=== PATIENT | male | born 1945 | race Caucasian/White ===

== ENCOUNTER 2018-05-31 12:46 | Inpatient (IN) ==
--- NOTE | 2018-05-31 14:00 | ED ---
HPI General Chief complaint: Extremity Injury, Upper Stated complaint: Right arm swelling fall on monday Time Seen by Provider: 05/31/18 13:58 Source: patient History of Present Illness HPI narrative: Patient is a 73-year-old male who presents the emergency room for evaluation of upper extremity edema and swelling and redness. Patient reports that he has history of polymyalgia rheumatica, reports that he trial prednisone 5 weeks ago and did not tolerate it and he developed allergic reaction. Patient reports that he did improve after his allergic reaction, reports that on Monday, he slipped and fell and his right elbow. Patient reports that over the past few days, he noticed increased redness and swelling to his right upper extremity. Patient reports concerns as he has been elevating his arm and has not had relief of symptoms. Patient denies any fever chills, denies any nausea vomiting. Patient's tetanus is up-to-date. Related Data Home Medications Medication Instructions Recorded Confirmed clonidine HCl 0.1 mg PO TID 05/31/18 05/31/18 enalapril maleate 5 mg PO DAILY 05/31/18 05/31/18 hydrochlorothiazide 50 mg PO DAILY 05/31/18 05/31/18 labetalol 200 mg PO BID 05/31/18 05/31/18 tramadol 50 mg PO BID 05/31/18 05/31/18 Allergies Allergy/AdvReac Type Severity Reaction Status Date / Time MUSHROOM Allergy Unknown Uncoded 08/05/03 04:35 No Known Allergies Allergy Uncoded 09/05/16 10:41 Review of Systems ROS Unobtainable All other systems reviewed negative except as stated in HPI [facility] Medical History Medical History H/O aortic aneurysm (Acute) H/O polymyalgia rheumatica (Acute) H/O scoliosis (Acute) H/O spinal stenosis (Acute) Surgical History Surgical History History of back surgery (Acute) Social History Social History Smoking Status: Unknown if ever smoked How Often Do You Have a Drink Containing Alcohol: Never Recent Travel in [facility] within the Last 8 Weeks: No Recent Out of Country Travel within the Last 8 Weeks: No Exam Narrative Exam Narrative: GENERAL: well appearing, NAD SKIN: Focused skin assessment warm/dry. HEAD: Atraumatic. Normocephalic. EYES: Pupils equal and round. No scleral icterus. No injection or drainage. ENT: No nasal bleeding or discharge. Mucous membranes pink and moist. NECK: Trachea midline. No JVD. CARDIOVASCULAR: Regular rate and rhythm. No murmur appreciated. RESPIRATORY: No accessory muscle use. Clear to auscultation. Breath sounds equal bilaterally. GASTROINTESTINAL: Abdomen soft, non-tender, nondistended. Hepatic and splenic margins not palpable. MUSCULOSKELETAL: No obvious deformities. No clubbing. No cyanosis. Patient with circumfrential edema and redness from hand to shoulder, it does look like he has a scabbed wound to his right elbow which could have been the inciting source of infection, pulses are intact, neurovascularly intact. LUE:normal exam NEUROLOGICAL: Awake and alert. No obvious cranial nerve deficits. Motor grossly within normal limits. Normal speech. PSYCHIATRIC: Appropriate mood and affect; insight and judgment normal. Course Initial Documented Vital Signs Temperature 98.6 F 05/31/18 13:18 Pulse Rate 92 H 05/31/18 13:18 Respiratory Rate 16 05/31/18 13:18 Blood Pressure 97/53 L 05/31/18 13:18 Pulse Oximetry 98 05/31/18 13:18 Last Documented Vital Signs Temperature 98.6 F 05/31/18 13:18 Pulse Rate 92 H 05/31/18 13:18 Respiratory Rate 16 05/31/18 13:18 Blood Pressure 97/53 L 05/31/18 13:18 Pulse Oximetry 98 05/31/18 13:18 Medical Decision Making [facility] Narrative Medical decision making narrative: During the course of the patients emergency department visit, the patients history, examination, and differential diagnosis were reviewed with the patient. The patient was placed on a secured entrance monitor with oximetry and frequent blood pressure monitoring. The patient had anIV access obtained and blood work sent for analysis. The patient was initially provided IVF as well as IV vanco The patients laboratory studies were reviewed and remarkable for wbc 26.1, bandemia with band neutrophils of 13% Patient has been pancultured, will require admission at this time. Case reviewed with Dr. Hong who accepts pt to his service, RUE US was ordered to rule out DVT - Dr. Hong will follow up with ultrasound report CR 2.7 - reports that he does have chronic renal disease - unsure of what his baseline CR is, cr from was 1.52 Differential Diagnosis Differential Diagnosis: cellulitis, dvt Medical Records Medical records reviewed: Yes I reviewed the patient's medical records. Lab Data Lab results reviewed: Yes I reviewed the patient's lab results. Result diagrams: 05/31/18 14:25 05/31/18 14:25 Lab Results 05/31/18 05/31/18 Range/Units 14:25 14:25 CBC w Diff Slide review pending WBC 26.1 H (4.0-11.0) th/mm3 RBC 3.76 L (4.50-5.90) mil/mm3 Hgb 11.8 L (13.0-17.0) gm/dL Hct 35.7 L (39.0-51.0) % MCV 95.0 (80.0-100.0) fL MCH 31.4 (27.0-34.0) pg MCHC 33.1 (32.0-36.0) % RDW 13.6 (11.6-17.2) % Plt Count 178 (150-450) th/mm3 MPV 10.2 (7.0-11.0) fL Neut % (Auto) 89.0 H (16.0-70.0) % Lymph % (Auto) 2.4 L (9.0-44.0) % [place] % (Auto) 6.8 (0.0-8.0) % Eos % (Auto) 1.6 (0.0-4.0) % Baso % (Auto) 0.2 (0.0-2.0) % Neut # (Auto) 23.2 H (1.8-7.7) th/mm3 Lymph # (Auto) 0.6 L (1.0-4.8) th/mm3 [place] # (Auto) 1.8 H (0.0-0.9) th/mm3 Eos # (Auto) 0.4 (0.0-0.4) th/mm3 Baso # (Auto) 0.1 (0.0-0.2) th/mm3 WBC Differential Manual diff final Seg Neuts % (Manual) 74 H (16-70) % Band Neuts % (Manual) 13 H (0-6) % Lymphocytes % (Manual) 4 L (9-44) % Monocytes % (Manual) 7 (0-8) % Eosinophils % (Manual) 2 (0-4) % Abs Neuts (Manual) 22.7 H (1.8-7.7) th/mm3 Platelet Estimate Normal (Normal) Platelet Morphology Normal (Normal) Sodium 138 (136-145) meq/L Potassium 3.8 (3.5-5.1) meq/L Chloride 104 (98-107) meq/L Carbon Dioxide 24.9 (21.0-32.0) meq/L Anion Gap 9 (5-15) meq/L BUN 42 H (7-18) mg/dL Creatinine 2.40 H (0.60-1.30) mg/dL Estimated GFR 27 L (>89) mL/min Random Glucose 103 (74-106) mg/dL Calcium 8.6 (8.5-10.1) mg/dL Total Bilirubin 0.6 (0.2-1.0) mg/dL AST 21 (15-37) U/L ALT 19 (12-78) U/L Alkaline Phosphatase 84 (45-117) U/L Total Protein 5.9 L (6.4-8.2) g/dL Albumin 2.5 L (3.4-5.0) g/dL Discharge Plan Discharge Disposition Patient Disposition: 30 Still Patient Discharge Condition Condition: Serious Discharge Details Discharge Problem: Cellulitis Physicians Team ED Provider: Yolande Callahan Primary Care Provider: Nirav Wakefield Rxs /Orders / Referrals /Forms Prescriptions: No Action clonidine HCl 0.1 mg Tablet 0.1 mg PO TID RF: 0 labetalol 200 mg Tablet 200 mg PO BID RF: 0 enalapril maleate 5 mg Tablet 5 mg PO DAILY RF: 0 hydrochlorothiazide 50 mg Tablet 50 mg PO DAILY RF: 0 tramadol 50 mg Tablet 50 mg PO BID RF: 0 Status ED Status: Admitted Patient
[2018-05-31 14:42] LABS: Baso # (Auto) 0.1 th/mm3 (0.0-0.2); Baso % (Auto) 0.2 % (0.0-2.0); Eos # (Auto) 0.4 th/mm3 (0.0-0.4); Eos % (Auto) 1.6 % (0.0-4.0); Hematocrit 35.7 % (39.0-51.0); Hemoglobin 11.8 gm/dL (13.0-17.0); Lymph # (Auto) 0.6 th/mm3 (1.0-4.8); Lymph % (Auto) 2.4 % (9.0-44.0); Mean Corpuscular HGB Conc 33.1 % (32.0-36.0); Mean Corpuscular Hemoglobin 31.4 pg (27.0-34.0); Mean Platelet Volume 10.2 fL (7.0-11.0); Mono # (Auto) 1.8 th/mm3 (0.0-0.9); Mono % (Auto) 6.8 % (0.0-8.0); Neut # (Auto) 23.2 th/mm3 (1.8-7.7); Platelet Count 178 th/mm3 (150-450); Red Blood Count 3.76 mil/mm3 (4.50-5.90); Red Cell Distribution Width 13.6 % (11.6-17.2); White Blood Count 26.1 th/mm3 (4.0-11.0)
[2018-05-31] MEDS ORDERED: Vancomycin Inj 1 GM/200 ML PIGGYBACK IV.SIG SCH (15:00)
[2018-05-31 15:01] LABS: Chloride 104 meq/L (98-107); Potassium 3.8 meq/L (3.5-5.1); Sodium 138 meq/L (136-145)
[2018-05-31 15:04] LABS: Calcium 8.6 mg/dL (8.5-10.1)
[2018-05-31 15:05] LABS: Albumin 2.5 g/dL (3.4-5.0); Anion Gap 9 meq/L (5-15); Blood Urea Nitrogen 42 mg/dL (7-18); Carbon Dioxide 24.9 meq/L (21.0-32.0); Glucose,Random 103 mg/dL (74-106)
[2018-05-31 15:08] LABS: Alanine Aminotransferase 19 U/L (12-78); Aspartate Aminotransferase 21 U/L (15-37); Glomerular Filtration Rate 27 mL/min (>89)
[2018-05-31 15:10] LABS: Total Protein 5.9 g/dL (6.4-8.2)
[2018-05-31 15:11] LABS: Alkaline Phosphatase 84 U/L (45-117)
[2018-05-31 15:19] LABS: Eosinophils 2 % (0-4); Lymphocytes 4 % (9-44); Monocytes 7 % (0-8); Platelet Estimate Normal (Normal); Platelet Morphology Normal (Normal)
[2018-05-31 15:25] LABS: Activated Partial Thrombo Time 37.1 sec (24.3-30.1); Prothrombin Time 10.1 sec (9.8-11.6)
[2018-05-31] MEDS ORDERED: Sod Chloride 0.9% Inj 1,000 ML IV.SIG ONE ×2 (15:34)
--- NOTE | 2018-05-31 15:41 | US ---
EXAM DATE: 05/31/2018 3:36 PM EDT AGE/SEX: 73 years / Male INDICATIONS: Right arm swelling, redness and pain. CLINICAL DATA: This is the patient's initial encounter. Patient reports that signs and symptoms have been present for 3 days and indicates a pain score of 5/10. MEDICAL/SURGICAL HISTORY: Aneurysm, abdominal. Spinal stenosis. Polymyalgia rheumatica. Scolios is. . Back surgery. COMPARISON: No prior exams available for comparison. FINDINGS: The vessels are compressible and augmentation response is documented. No filling defects a re seen. The flow is phasic with respiration. Other: There is edema in the subcutaneous soft tissues. CONCLUSION: 1. No evidence of DVT. Electronically signed by: Johnnie Weber MD 05/31/2018 3:40 PM EDT
[2018-05-31] MEDS ORDERED: Piperacil/Tazo 3.375 GM Premix 50 ML IV.SIG ONE (15:43)
[2018-05-31] MEDS ORDERED: Acetaminophen 500 MG Tablet PO PRN (16:23)
--- NOTE | 2018-05-31 16:36 | P.HPIM ---
History of Present Illness Primary Care Physician: Nirav Wakefield MD Chief Complaint: swelling of the right arm History of Present Illness: patient is a 73 y/o male who presented to ER with swelling of the right arm. he says that he hit his hand to something a few days ago when he was walking.after which he started to notice some swelling and redness of the right arm. he denies any fever or chills but he says that the right arm is painful. - Diagnosis (1) Cellulitis (2) PMR (polymyalgia rheumatica) (3) Descending aortic aneurysm (4) Acute kidney injury superimposed on chronic kidney disease - Inpatient Certification If this patient has been admitted as an Inpatient: I certify that the inpatient services were ordered in accordance with Medicare regulations governing the order. This includes certification that hospital inpatient services are reasonable and necessary and in the case of services not specified as inpatient-only under 42 CFR 419.22(n), that they are appropriately provided as inpatient services in accordance to with the 2-midnight benchmark under 43 CFR 412.3(e) Review of Systems All other systems reviewed negative except as stated in HPI PMFSH - History History Provided By: Patient - Medical History Medical History: Medical History (Last Reviewed 05/31/18 @ 15:27 by Yolande Callahan) H/O aortic aneurysm H/O polymyalgia rheumatica H/O scoliosis H/O spinal stenosis - Surgical History Surgical History: Surgical History (Last Reviewed 05/31/18 @ 15:27 by Yolande Callahan) History of back surgery - Tobacco History Smoking Status: Unknown if ever smoked - Alcohol History How Often Do You Have a Drink Containing Alcohol: Never - Travel History Recent Travel in the [place] Within the Last 8 Weeks: No Recent Travel Out of the Country Within the Last 8 Weeks: No - Immunization History Tetanus Immunization: <5 Years Hx Influenza Vaccine This Season: No Medications and Allergies Active Medications: Active Medications Acetaminophen (Tylenol) 500 mg PO Q6H PRN PRN Reason: FEVER Vancomycin/Sodium Chloride (Vancomycin Inj) 1 gm in 200 mls @ 200 mls/hr IV.SIG [facility] Last Admin: 05/31/18 15:41 Dose: 200 mls/hr Pharmacy Profile Note (Vancomycin Consult Pharmacy) 0 mls @ 0 mls/hr OTHER [facility] Piperacillin/Tazobactam/Dextrose (Zosyn 2.25 Gm Premix) 50 mls @ 100 mls/hr IV.SIG Q6H [place] Sodium Chloride (Ns Inj) 1,000 mls @ 70 mls/hr IV.CONT .[id number] [place] Labetalol HCl (Trandate) 200 mg PO BID [place] Tramadol HCl (Ultram) 50 mg PO Q6H PRN PRN Reason: pain > 4 Allergies Allergy/AdvReac Type Severity Reaction Status Date / Time MUSHROOM Allergy Unknown Uncoded 08/05/03 04:35 No Known Allergies Allergy Uncoded 09/05/16 10:41 Home Medications Medication Instructions Recorded Confirmed Type clonidine HCl 0.1 mg PO TID 05/31/18 05/31/18 History enalapril maleate 5 mg PO DAILY 05/31/18 05/31/18 History hydrochlorothiazide 50 mg PO DAILY 05/31/18 05/31/18 History labetalol 200 mg PO BID 05/31/18 05/31/18 History tramadol 50 mg PO BID 05/31/18 05/31/18 History Exam Vital signs: Vital Signs 05/31/18 13:18 05/31/18 15:52 05/31/18 16:05 Temperature 98.6 F Pulse Rate 92 H 87 Respiratory Rate 16 16 Blood Pressure 97/53 L 102/62 Pulse Oximetry 98 97 99 Intake & Output 05/30/18 05/31/18 05/31/18 18:59 06:59 18:59 Weight 77 kg - Constitutional no acute distress - Routine Neck Exam Present: supple, full ROM - Routine Respiratory Exam Present: CTA bilaterally - Routine Cardiovascular Exam Present: RRR - Routine Abdominal Exam Present: soft - Routine Extremities Exam Present: edema (right arm is swollen with erythema from the right hand upto the right upper arm.) - Routine Skin Exam Present: erythema (right arm.) - Routine Neurological Exam Present: alert, oriented X3 Results - Labs CBC & Chem 7: 05/31/18 14:25 05/31/18 14:25 Labs: Short CBC 05/31/18 Range/Units 14:25 WBC 26.1 H (4.0-11.0) th/mm3 Hgb 11.8 L (13.0-17.0) gm/dL Hct 35.7 L (39.0-51.0) % Plt Count 178 (150-450) th/mm3 BMP 05/31/18 14:25 Sodium 138 Potassium 3.8 Chloride 104 Carbon Dioxide 24.9 BUN 42 H Creatinine 2.40 H Calcium 8.6 Liver Function 05/31/18 Range/Units 14:25 Total Bilirubin 0.6 (0.2-1.0) mg/dL AST 21 (15-37) U/L ALT 19 (12-78) U/L Alkaline Phosphatase 84 (45-117) U/L Albumin 2.5 L (3.4-5.0) g/dL - Imaging Impressions Venous Doppler Study 05/31/18 14:15 CONCLUSION: 1. No evidence of DVT. Caprini VTE Risk Assessment Caprini VTE Risk Assessment: Moderate/High Risk (score >= 2) Caprini Risk Assessment Model: Point Value = 1 Point Value = 2 Point Value = 3 Point Value = 5 Age 41-60 Minor surgery BMI > 25 kg/m2 Swollen legs Varicose veins or History of unexplained or recurrent spontaneous Oral contraceptives or hormone replacement Sepsis (< 1 month) Serious lung disease, including pneumonia (< 1 month) Abnormal pulmonary function Acute myocardial infarction Congestive heart failure (< 1 month) History of inflammatory bowel disease Medical patient at bed rest Age 61-74 Arthroscopic surgery Major open surgery (> 45 min) Laparoscopic surgery (> 45 min) Malignancy Confined to bed (> 72 hours) Immobilizing plaster cast Central venous access Age >= 75 History of VTE Family history of VTE Factor V Leiden Prothrombin [id number] Lupus anticoagulant Anticardiolipin antibodies Elevated serum homocysteine Heparin-induced thrombocytopenia Other congenital or acquired thrombophilia Stroke (< 1 month) Elective arthroplasty Hip, pelvis, or leg fracture Acute spinal cord injury (< 1 month) Prophylaxis Regimen: Total Risk Factor Score Risk Level Prophylaxis Regimen 0-1 Low Early ambulation 2 Moderate Order ONE of the following: *Sequential Compression Device (SCD) *Heparin 5000 units SQ BID 3-4 Higher Order ONE of the following medications: *Heparin 5000 units SQ TID *Enoxaparin/Lovenox 40 mg SQ daily (WT < 150 kg, CrCl > 30 mL/min) *Enoxaparin/Lovenox 30 mg SQ daily (WT < 150 kg, CrCl > 10-29 mL/min) *Enoxaparin/Lovenox 30 mg SQ BID (WT < 150 kg, CrCl > 30 mL/min) AND/OR *Sequential Compression Device (SCD) 5 or more Highest Order ONE of the following medications: *Heparin 5000 units SQ TID (Preferred with Epidurals) *Enoxaparin/Lovenox 40 mg SQ daily (WT < 150 kg, CrCl > 30 mL/min) *Enoxaparin/Lovenox 30 mg SQ daily (WT < 150 kg, CrCl > 10-29 mL/min) *Enoxaparin/Lovenox 30 mg SQ BID (WT < 150 kg, CrCl > 30 mL/min) AND *Sequential Compression Device (SCD) Assessment and Plan - Assessment (1) Cellulitis Code(s): L03.90 - Cellulitis, unspecified Status: Acute Plan: continue with broad-spectrum IV antibiotics and pain control- follow the cultures- will consider ID and/or hand surgery evaluation if no improvement over the next 24 hrs. (2) PMR (polymyalgia rheumatica) Code(s): M35.3 - Polymyalgia rheumatica Status: Acute Plan: patient has been on prednisone recently- will need to verify the home meds. (3) Descending aortic aneurysm Code(s): I71.9 - Aortic aneurysm of unspecified site, without rupture Status: Acute Plan: will monitor the BP over night and will resume the home meds tomorrow if BP remains stable. (4) Acute kidney injury superimposed on chronic kidney disease Code(s): N17.9 - Acute kidney failure, unspecified; N18.9 - Chronic kidney disease, unspecified Status: Acute Plan: start on IV fluid and monitor the renal function- hold YO for now- (1) Cellulitis Qualifiers: Site of cellulitis: extremity Site of cellulitis of extremity: upper extremity Laterality: right Qualified Code(s): L03.113 - Cellulitis of right upper limb
[2018-05-31] MEDS ORDERED: Vancomycin Consult Pharmacy 1 EACH OTHER SCH (17:00)
[2018-05-31] MEDS: Sod Chloride 0.9% Inj 1,000 ML IV.CONT SCH (17:49)
[2018-05-31] MEDS: Piperacil/Tazo 2.25 GM Premix 50 ML IV.SIG SCH (21:12)
[2018-05-31] MEDS: Labetalol 200 MG Tablet PO SCH (21:12)
[2018-06-01] MEDS: Piperacil/Tazo 2.25 GM Premix 50 ML IV.SIG SCH ×3 (04:19→15:54)
[2018-06-01 06:17] LABS: Potassium 3.9 meq/L (3.5-5.1)
[2018-06-01 06:19] LABS: Hematocrit 35.9 % (39.0-51.0); Mean Corpuscular HGB Conc 33.5 % (32.0-36.0); Mean Corpuscular Hemoglobin 31.8 pg (27.0-34.0); Mean Platelet Volume 10.6 fL (7.0-11.0); Platelet Count 193 th/mm3 (150-450); Red Blood Count 3.78 mil/mm3 (4.50-5.90); Red Cell Distribution Width 13.6 % (11.6-17.2); White Blood Count 24.6 th/mm3 (4.0-11.0)
[2018-06-01 06:20] LABS: Calcium 8.8 mg/dL (8.5-10.1); Carbon Dioxide 21.9 meq/L (21.0-32.0)
--- NOTE | 2018-06-01 08:05 | P.PN ---
Subjective Interval history: f/u; cellulitis right arm still with significant swelling and erythema over the right upper extremity with no significant improvement since yesterday. pain to the site is moderate in intensity. no fever. Physical Exam Vital signs: Vital Signs 05/31/18 13:18 05/31/18 15:52 05/31/18 16:05 Temperature 98.6 F Pulse Rate 92 H 87 Respiratory Rate 16 16 Blood Pressure 97/53 L 102/62 Pulse Oximetry 98 97 99 05/31/18 17:40 05/31/18 20:00 06/01/18 00:00 Temperature 96.7 F L 99.3 F 97.9 F Pulse Rate 89 89 85 Respiratory Rate 20 20 20 Blood Pressure 119/57 L 102/60 96/56 L Pulse Oximetry 98 98 95 Intake & Output 05/31/18 06/01/18 06/01/18 18:59 06:59 18:59 Intake Total 1200 / 1200 870 / 870 Balance 1200 / 1200 870 / 870 Weight 75.9 kg 75.7 kg Intake: IV 1200 / 1200 150 / 150 Zosyn 2.25 GM Premix 50 ML @ 100 / 100 100 mls/hr IV.SIG Q6H [place] Rx#: [id number] Zosyn 3.375 GM Premix 50 ML @ 50 / 50 100 mls/hr IV.SIG ONCE ONE Rx#: [id number] NS Inj 1,000 ML @ Wide Open IV. 1000 / 1000 SIG BOLUS ONE Rx#:[id number] Vancomycin Inj 1 gm In 200 ml @ 200 / 200 200 mls/hr IV.SIG [employer] [facility] Rx#:[id number] Oral 720 / 720 Other: # Voids 2 Weight On Admission 75.9 kg - Constitutional no acute distress - Routine Respiratory Exam Present: CTA bilaterally - Routine Cardiovascular Exam Present: RRR - Routine Abdominal Exam Present: soft - Routine Extremities Exam Present: edema (right upper extremity) - Routine Skin Exam Present: erythema (right upper extremity) - Routine Neurological Exam Present: alert, oriented X3 Results - Labs CBC & Chem 7: 06/01/18 04:45 06/01/18 04:45 Laboratory Results - last 24 hr 05/31/18 05/31/18 05/31/18 14:25 14:25 14:25 CBC w Diff Slide review pending WBC 26.1 H RBC 3.76 L Hgb 11.8 L Hct 35.7 L MCV 95.0 MCH 31.4 MCHC 33.1 RDW 13.6 Plt Count 178 MPV 10.2 Neut % (Auto) 89.0 H Lymph % (Auto) 2.4 L [place] % (Auto) 6.8 Eos % (Auto) 1.6 Baso % (Auto) 0.2 Neut # (Auto) 23.2 H Lymph # (Auto) 0.6 L [place] # (Auto) 1.8 H Eos # (Auto) 0.4 Baso # (Auto) 0.1 WBC Differential Manual diff final Seg Neuts % (Manual) 74 H Band Neuts % (Manual) 13 H Lymphocytes % (Manual) 4 L Monocytes % (Manual) 7 Eosinophils % (Manual) 2 Abs Neuts (Manual) 22.7 H Platelet Estimate Normal Platelet Morphology Normal PT 10.1 INR 1.0 APTT 37.1 H Sodium 138 Potassium 3.8 Chloride 104 Carbon Dioxide 24.9 Anion Gap 9 BUN 42 H Creatinine 2.40 H Estimated GFR 27 L Random Glucose 103 Lactic Acid Calcium 8.6 Total Bilirubin 0.6 AST 21 ALT 19 Alkaline Phosphatase 84 Total Protein 5.9 L Albumin 2.5 L 05/31/18 06/01/18 06/01/18 15:55 04:45 04:45 CBC w Diff WBC 24.6 H RBC 3.78 L Hgb 12.0 L Hct 35.9 L MCV 95.0 MCH 31.8 MCHC 33.5 RDW 13.6 Plt Count 193 MPV 10.6 Neut % (Auto) Lymph % (Auto) [place] % (Auto) Eos % (Auto) Baso % (Auto) Neut # (Auto) Lymph # (Auto) [place] # (Auto) Eos # (Auto) Baso # (Auto) WBC Differential Seg Neuts % (Manual) Band Neuts % (Manual) Lymphocytes % (Manual) Monocytes % (Manual) Eosinophils % (Manual) Abs Neuts (Manual) Platelet Estimate Platelet Morphology PT INR APTT Sodium 140 Potassium 3.9 Chloride 106 Carbon Dioxide 21.9 Anion Gap 12 BUN 34 H Creatinine 2.10 H Estimated GFR 31 L Random Glucose 96 Lactic Acid 1.0 Calcium 8.8 Total Bilirubin AST ALT Alkaline Phosphatase Total Protein Albumin - Imaging Impressions Venous Doppler Study 05/31/18 14:15 CONCLUSION: 1. No evidence of DVT. Assessment and Plan - Assessment (1) Cellulitis Code(s): L03.90 - Cellulitis, unspecified Status: Acute Plan: continue with broad-spectrum IV antibiotics and pain control- follow the cultures- will consult ID and hand surgery. (2) PMR (polymyalgia rheumatica) Code(s): M35.3 - Polymyalgia rheumatica Status: Acute Plan: patient has been on prednisone recently- (3) Descending aortic aneurysm Code(s): I71.9 - Aortic aneurysm of unspecified site, without rupture Status: Acute Plan: BP management as noted- f/u as outpatient. (4) Acute kidney injury superimposed on chronic kidney disease Code(s): N17.9 - Acute kidney failure, unspecified; N18.9 - Chronic kidney disease, unspecified Status: Acute Plan: started on IV fluid and monitor the renal function- hold YO for now- (5) Hypertension Code(s): I10 - Essential (primary) hypertension Status: Chronic Plan: resumed Labetalol- hold Enalapril for now due to acute kidney injury- continue to monitor and adjust the regimen as needed. - Plan Discharge Planning: pending clinical improvement. (1) Cellulitis Qualifiers: Site of cellulitis: extremity Site of cellulitis of extremity: upper extremity Laterality: right Qualified Code(s): L03.113 - Cellulitis of right upper limb
[2018-06-01] MEDS: Labetalol 200 MG Tablet PO SCH ×2 (08:16→20:57)
[2018-06-01] MEDS: Sod Chloride 0.9% Inj 1,000 ML IV.CONT SCH (08:17)
[2018-06-01] MEDS ORDERED: Labetalol 200 MG Tablet PO SCH (09:00)
[2018-06-01 10:49] LABS: Vancomycin,Random 7.4 Comment
--- NOTE | 2018-06-01 14:19 | MB ---
cc: Simona Soriano MD DATE: 06/01/2018 REQUESTING PHYSICIAN: Dr. Yolande Callahan. REASON FOR CONSULTATION: Right upper extremity swelling. HISTORY OF PRESENT ILLNESS: The patient is a 73-year-old male who reports that approximately 4 days ago, he was in his kitchen and slipped and scraped his right elbow. The patient, who has a history of polymyalgia rheumatica, had taken prednisone 5 weeks before, which he did not tolerate and had been off that for quite a while. The patient reported that after the scrape on Monday, each day the arm got more and more swollen. He sought medical attention on and was admitted at that time for intravenous antibiotics. His laboratory data at that time indicated a white count of 26.1 with 89% neutrophils; absolute number was 23.2 thousand. His blood sugar at the time of admission was 103. The patient had a workup for DVT, which was negative. Over the last 12 hours, the arm has improved. The patient reports that there was significant swelling on the dorsal aspect of his right hand, which has completely abated. He does continue to have swelling and edema more proximally. There is redness which goes from the area of the wrist, just distal to the shoulder. PAST MEDICAL HISTORY: The patient reports that he has a history of an aortic aneurysm, polymyalgia rheumatica, scoliosis, and spinal stenosis. SOCIAL HISTORY: Noncontributory. Alcohol is negative. ALLERGIES: INCLUDE MUSHROOMS. PHYSICAL EXAMINATION: GENERAL: The patient is sitting comfortably in bed. HEENT: His extraocular muscles are intact. His pupils are equal, round and reactive to light. His mouth is clear. NECK: Supple, without masses. LUNGS: Clear. HEART: Regular rate and rhythm. UPPER EXTREMITIES: Reveals significant swelling to the right upper extremity. There is a scab over the elbow, which is healed. There is no fluctuance present. No evidence of abscess formation. The redness does go from just distal to his right shoulder, all the way to the area of the wrist. He is able to flex and extend his elbow and fingers. IMPRESSION: The patient appears to have a cellulitis secondary to an injury. PLAN: The patient appears to be responding adequately to the antibiotics. I will continue the intravenous antibiotics. I do not anticipate that he will need to have any type of surgical intervention. I will follow him with you over the weekend. MD WALKER Martines/FLASH , 01:59 PM , 02:17 PM
[2018-06-01] MEDS ORDERED: Vancomycin Inj 1,500 MG in Sodium Chlor 0.9% Inj 500 ML IV.SIG SCH (15:00)
--- NOTE | 2018-06-01 15:50 | P.CON ---
History of Present Illness Service: INFECTIOUS DISEASE Consult date: 06/01/18 Requesting Physician: Kiki Ramirez Reason for Consult: RIGHT ARM CELLULITIS Primary Care Provider: Nirav Wakefield MD Family Provider: Nirav Wakefield MD Chief Complaint: swelling of the right arm History of Present Illness: 73 YR OLD MALE WITH A RECENT DIAGNOSIS OF POLY RHEUMATICA NEARLY 2 MONTHS AGO IS ADMITTED WITH RIGHT ARM CELLULITIS AFTER HE FEEL IN HIS BATHROOM ON MONDAY AND HIT HIS RIGHT ELBOW. HE NOTED AN ABRASION OVER THE ELBOW. NO FEVER OR CHILLS BUT STATES THE ELBOW IS VERY HOT. HE HAS LIMITED ROM. HE WAS STARTED ON ZOSYN/VANCOMYCIN AND STATES IT IS FEELING BETTER. [facility] - History History Provided By: Patient - Medical History Medical History: Medical History (Last Reviewed 05/31/18 @ 15:27 by Yolande Callahan) H/O aortic aneurysm H/O polymyalgia rheumatica H/O scoliosis H/O spinal stenosis - Surgical History Surgical History: Surgical History (Last Reviewed 05/31/18 @ 15:27 by Yolande Callahan) History of back surgery - Tobacco History Second Hand Smoke Exposure: No Tobacco Use In Past 30 Days: No Smoking Status: Never smoker Tobacco Type: Cigarettes - Alcohol History How Often Do You Have a Drink Containing Alcohol: Never - Substance Use History Substance History: No History of Abuse - Travel History Recent Travel in the [place] Within the Last 8 Weeks: No Recent Travel Out of the Country Within the Last 8 Weeks: No - Immunization History Tetanus Immunization: <5 Years Hx Influenza Vaccine This Season: No Medications and Allergies Active Medications: Active Medications Acetaminophen (Tylenol) 500 mg PO Q6H PRN PRN Reason: FEVER Vancomycin/Sodium Chloride (Vancomycin Inj) 1 gm in 200 mls @ 200 mls/hr IV.SIG CLOCK AND WATCH HANDS MOUNTER [facility] Last Infusion: 05/31/18 17:53 Dose: Infused Pharmacy Profile Note (Vancomycin Consult Pharmacy) 0 mls @ 0 mls/hr OTHER UNSCH [facility] Piperacillin/Tazobactam/Dextrose (Zosyn 2.25 Gm Premix) 50 mls @ 100 mls/hr IV.SIG Q6H [facility] Last Infusion: 06/01/18 12:53 Dose: Infused Sodium Chloride (Ns Inj) 1,000 mls @ 70 mls/hr IV.CONT .[id number] [facility] Last Admin: 06/01/18 08:17 Dose: 70 mls/hr Vancomycin HCl 1,250 mg/ (Sodium Chloride) 262.5 mls @ 250 mls/hr IV.SIG Q12H [facility] Labetalol HCl (Trandate) 200 mg PO BID [facility] Last Admin: 06/01/18 08:16 Dose: 200 mg Miscellaneous Information ([facility] [place]dered [place] Info) 1 each OTHER UNSCH X1 ONE Stop: 06/03/18 05:46 Tramadol HCl (Ultram) 50 mg PO Q6H PRN PRN Reason: pain > 4 Last Admin: 06/01/18 08:15 Dose: 50 mg Allergies Allergy/AdvReac Type Severity Reaction Status Date / Time MUSHROOM Allergy Unknown Uncoded 08/05/03 04:35 No Known Allergies Allergy Uncoded 09/05/16 10:41 Home Medications Medication Instructions Recorded Confirmed Type clonidine HCl 0.1 mg PO Q8HR 05/31/18 05/31/18 History enalapril maleate 5 mg PO DAILY 05/31/18 05/31/18 History hydrochlorothiazide 50 mg PO DAILY 05/31/18 05/31/18 History labetalol 200 mg PO BID 05/31/18 05/31/18 History tramadol 50 mg PO BID PRN 05/31/18 05/31/18 History Physical Exam Vital signs: Vital Signs 05/31/18 15:52 05/31/18 16:05 05/31/18 17:40 Temperature 96.7 F L Pulse Rate 87 89 Respiratory Rate 16 20 Blood Pressure 102/62 119/57 L Pulse Oximetry 97 99 98 05/31/18 20:00 06/01/18 00:00 06/01/18 08:00 Temperature 99.3 F 97.9 F 96.6 F L Pulse Rate 89 85 75 Respiratory Rate 20 20 Blood Pressure 102/60 96/56 L 111/55 L Pulse Oximetry 98 95 99 06/01/18 08:31 06/01/18 09:26 06/01/18 12:00 Temperature 97 F L Pulse Rate 85 Respiratory Rate 18 18 Blood Pressure 115/57 L Pulse Oximetry 99 96 Intake & Output 05/31/18 06/01/18 06/01/18 18:59 06:59 18:59 Intake Total 1200 / 1200 870 / 870 1050 / 1050 Balance 1200 / 1200 870 / 870 1050 / 1050 Weight 75.9 kg 75.7 kg Intake: IV 1200 / 1200 150 / 150 1050 / 1050 NS Inj 1,000 ML @ 70 mls/hr IV. 1000 / 1000 CONT .[id number] [facility] Rx#: [id number] Zosyn 2.25 GM Premix 50 ML @ 100 / 100 50 / 50 100 mls/hr IV.SIG Q6H [facility] Rx#: [id number] Zosyn 3.375 GM Premix 50 ML @ 50 / 50 100 mls/hr IV.SIG [facility] Rx#: [id number] NS Inj 1,000 ML @ Wide Open IV. 1000 / 1000 [facility] Rx#:[id number] Vancomycin Inj 1 gm In 200 ml @ 200 / 200 200 mls/hr IV.SIG CLOCK AND WATCH HANDS MOUNTER [facility] Rx#:[id number] Oral 720 / 720 Other: # Voids 2 Weight On Admission 75.9 kg - Constitutional no acute distress, cooperative - Routine HEENT Exam Eye: Absent: periorbital ecchymosis, nystagmus ENT: Absent: mucous membranes moist, nares patent, TM's clear bilaterally - Detailed Eye Exam Eyelids: Bilateral normal inspection Pupils: Bilateral regular, round Sclerae/Conjunctivae: Bilateral normal inspection Lens/Anterior chamber: Bilateral normal inspection - Routine Neck Exam Present: full ROM - Detailed Chest Wall Exam Chest wall: Present: increased AP diameter - Routine Respiratory Exam Present: CTA bilaterally - Routine Cardiovascular Exam Present: RRR, S2 - Detailed Cardiovascular Exam Palpation: Absent: displaced PMI - Routine Abdominal Exam Present: soft, normoactive bowel sounds. Absent: tenderness - Routine Extremities Exam Present: edema (RIGHT ARM INDURATED AND HOT! REDNESS TO HIS WRIST TO MID ARM NO FLUCTUANCE ), full ROM. Absent: pallor - Detailed Neurological Exam: Coma Scale Eye Opening: To pressure Verbal Response: Oriented Motor Response: Obey commands Phillip Coma Scale Total: 13 - Routine Psychiatric Exam Present: normal affect Assessment and Plan - Plan 1./ RIGHT ARM CELLULITIS RECOMMENDATION VANCOMYCIN CHANGE ZOSYN TO ANCEF WILL MONITOR AND FU
[2018-06-01] MEDS ORDERED: ceFAZolin 1 GM Premix Inj 1 GM/50 ML FROZ.PIGGY IV.SIG SCH (17:00)
[2018-06-01] MEDS: Vancomycin Inj 1,250 MG in Sodium Chlor 0.9% Inj 250 ML IV.SIG SCH (17:52)
[2018-06-02] MEDS: Sod Chloride 0.9% Inj 1,000 ML IV.CONT SCH ×2 (01:27→20:37)
[2018-06-02] MEDS: Vancomycin Inj 1,250 MG in Sodium Chlor 0.9% Inj 250 ML IV.SIG SCH ×2 (06:00→20:38)
[2018-06-02 07:39] LABS: Hematocrit 33.3 % (39.0-51.0); Hemoglobin 11.2 gm/dL (13.0-17.0); Mean Corpuscular HGB Conc 33.6 % (32.0-36.0); Mean Corpuscular Hemoglobin 31.7 pg (27.0-34.0); Mean Corpuscular Volume 94.1 fL (80.0-100.0); Mean Platelet Volume 9.9 fL (7.0-11.0); Platelet Count 207 th/mm3 (150-450); Red Blood Count 3.54 mil/mm3 (4.50-5.90); Red Cell Distribution Width 13.5 % (11.6-17.2)
[2018-06-02 08:12] LABS: Potassium 3.8 meq/L (3.5-5.1)
[2018-06-02 08:20] LABS: Calcium 8.3 mg/dL (8.5-10.1)
--- NOTE | 2018-06-02 08:27 | P.PN ---
Subjective Interval history: in no acute distress. cellulitis of the right arm seems to be improving slowly. no fever. no new complaints. Physical Exam Vital signs: Vital Signs 06/01/18 08:31 06/01/18 09:26 06/01/18 12:00 Temperature 97 F L Pulse Rate 85 Respiratory Rate 18 18 Blood Pressure 115/57 L Pulse Oximetry 99 96 06/01/18 16:00 06/01/18 18:00 06/01/18 20:00 Temperature 98.8 F 99 F Pulse Rate 86 Respiratory Rate 18 18 18 Blood Pressure 118/55 L 132/76 Pulse Oximetry 96 97 06/01/18 21:45 06/02/18 00:00 06/02/18 06:00 Temperature 98.4 F 98.0 F Pulse Rate 87 77 Respiratory Rate 18 18 Blood Pressure 118/69 113/73 139/83 Pulse Oximetry 98 99 06/02/18 07:58 Temperature 97.2 F L Pulse Rate 93 H Respiratory Rate 20 Blood Pressure 115/58 L Pulse Oximetry 96 Intake & Output 06/01/18 06/02/18 06/02/18 18:59 06:59 18:59 Intake Total 2162.5 / 2162.5 1100 / 1100 262.5 / 262.5 Balance 2162.5 / 2162.5 1100 / 1100 262.5 / 262.5 Weight 76.9 kg Intake: IV 1462.5 / 1462.5 1100 / 1100 262.5 / 262.5 NS Inj 1,000 ML @ 70 mls/hr IV. 1000 / 1000 1000 / 1000 CONT .[id number] [facility] Rx#: [id number] Zosyn 2.25 GM Premix 50 ML @ 100 / 100 100 mls/hr IV.SIG Q6H [facility] Rx#: [id number] Vancomycin Inj 1,250 MG In NS 262.5 / 262.5 262.5 / 262.5 Inj 250 ML @ 250 mls/hr IV.SIG Q12H [facility] Rx#:[id number] Ancef Inj 1,000 MG In NS Inj 100 / 100 100 / 100 100 ML @ 200 mls/hr IV.SIG Q8H [facility] Rx#:[id number] Oral 100 / 100 Oral Supplement 600 / 600 Other: # Voids 3 - Constitutional no acute distress - Routine Respiratory Exam Present: CTA bilaterally - Routine Cardiovascular Exam Present: RRR - Routine Abdominal Exam Present: soft - Routine Extremities Exam Present: edema (right upper extremity-) - Routine Skin Exam Present: erythema (right upper extremity- seems to be improving.) - Routine Neurological Exam Present: alert, oriented X3 Results - Labs CBC & Chem 7: 06/02/18 07:12 06/02/18 07:12 Laboratory Results - last 24 hr 06/01/18 06/02/18 06/02/18 04:45 07:12 07:12 WBC 22.0 H RBC 3.54 L Hgb 11.2 L Hct 33.3 L MCV 94.1 MCH 31.7 MCHC 33.6 RDW 13.5 Plt Count 207 MPV 9.9 Sodium 140 Potassium 3.8 Chloride 109 H Carbon Dioxide 22.0 Anion Gap 9 BUN 25 H Random Glucose 132 H Calcium 8.3 L Random Vancomycin 7.4 Microbiology 05/31/18 14:25 Blood - Peripheral Aerobic Blood Culture - Preliminary No growth in 1 day 05/31/18 14:25 Blood - Peripheral Anaerobic Blood Culture - Preliminary No growth in 1 day 05/31/18 14:30 Blood - Peripheral Aerobic Blood Culture - Preliminary No growth in 1 day 05/31/18 14:30 Blood - Peripheral Anaerobic Blood Culture - Preliminary No growth in 1 day Assessment and Plan - Assessment (1) Cellulitis Code(s): L03.90 - Cellulitis, unspecified Status: Acute Plan: continue with broad-spectrum IV antibiotics; Vanco and Ancef-continue pain control- ID and hand surgery evaluation appreciated. (2) PMR (polymyalgia rheumatica) Code(s): M35.3 - Polymyalgia rheumatica Status: Acute Plan: patient has been on prednisone recently- says that had a reaction to prednisone and stopped taking it- f/u as outpatient. (3) Descending aortic aneurysm Code(s): I71.9 - Aortic aneurysm of unspecified site, without rupture Status: Acute Plan: BP management as noted- f/u as outpatient. (4) Acute kidney injury superimposed on chronic kidney disease Code(s): N17.9 - Acute kidney failure, unspecified; N18.9 - Chronic kidney disease, unspecified Status: Acute Plan: started on IV fluid and monitor the renal function- (5) Hypertension Code(s): I10 - Essential (primary) hypertension Status: Chronic Plan: resumed home meds- will follow. - Plan Discharge Planning: within the next couple of days - pending further clinical improvement. (1) Cellulitis Qualifiers: Site of cellulitis: extremity Site of cellulitis of extremity: upper extremity Laterality: right Qualified Code(s): L03.113 - Cellulitis of right upper limb
[2018-06-02] MEDS: Labetalol 200 MG Tablet PO SCH ×2 (08:51→20:34)
--- NOTE | 2018-06-02 13:07 | P.PNPLA ---
Subjective Remarks: The patient reports that there is less swelling and redness. Objective Vital Signs: Vital Signs - 24 hr 06/01/18 16:00 06/01/18 18:00 06/01/18 20:00 Temperature 98.8 F 99 F Pulse Rate 86 Respiratory Rate 18 18 18 Blood Pressure 118/55 L 132/76 Pulse Oximetry 96 97 06/01/18 21:45 06/02/18 00:00 06/02/18 06:00 Temperature 98.4 F 98.0 F Pulse Rate 87 77 Respiratory Rate 18 18 Blood Pressure 118/69 113/73 139/83 Pulse Oximetry 98 99 06/02/18 07:58 06/02/18 11:33 Temperature 97.2 F L 97 F L Pulse Rate 93 H 90 Respiratory Rate 20 20 Blood Pressure 115/58 L 118/60 Pulse Oximetry 96 96 Intake & Output 05/31/18 06/01/18 06/02/18 06/03/18 06:59 06:59 06:59 06:59 Intake Total 2890 / 2890 3262.5 / 3262.5 262.5 / 262.5 Output Total 450 / 450 Balance 2440 / 2440 3262.5 / 3262.5 262.5 / 262.5 Weight 75.7 kg 76.9 kg Laboratory Results: Laboratory Results - last 24 hr 06/02/18 06/02/18 07:12 07:12 WBC 22.0 H RBC 3.54 L Hgb 11.2 L Hct 33.3 L MCV 94.1 MCH 31.7 MCHC 33.6 RDW 13.5 Plt Count 207 MPV 9.9 Sodium 140 Potassium 3.8 Chloride 109 H Carbon Dioxide 22.0 Anion Gap 9 BUN 25 H Creatinine 1.80 H Estimated GFR 37 L Random Glucose 132 H Calcium 8.3 L Microbiology 05/31/18 14:25 Aerobic Blood Culture - Preliminary Blood - Peripheral No growth in 2 days Anaerobic Blood Culture - Preliminary No growth in 2 days 05/31/18 14:30 Aerobic Blood Culture - Preliminary Blood - Peripheral No growth in 2 days Anaerobic Blood Culture - Preliminary No growth in 2 days Result Diagrams: 06/02/18 07:12 06/02/18 07:12 Exam Findings: There is less swelling of the arm. He continues to have a significant amount of induration. This is in the area of the elbow and proximal forearm. There is much less redness. Assessment and Plan - Diagnosis (1) Cellulitis Status: Acute Code(s): L03.90 - Cellulitis, unspecified - Plan Impression: The patient has improved. Plan: I would continue the patient on intravenous antibiotics. I anticipate at least an additional 48 hours of intravenous antibiotics. (1) Cellulitis Qualifiers: Site of cellulitis: extremity Site of cellulitis of extremity: upper extremity Laterality: right Qualified Code(s): L03.113 - Cellulitis of right upper limb
--- NOTE | 2018-06-02 14:37 | P.PNID ---
Subjective Remarks: Right arm is a lot better No fever Antibiotics: Vancomycin and Cefazolin Lines: Peripheral IV line Past Medical History: HTN Aortic Aneurysm Polymyalgia rheumatica Spinal stenosis Allergies/Adverse Reactions: Allergies MUSHROOM Allergy (Unknown, Uncoded 08/05/03 04:35) No Known Allergies Allergy (Uncoded 09/05/16 10:41) Objective Vital Signs 06/01/18 16:00 06/01/18 18:00 06/01/18 20:00 Temperature 98.8 F 99 F Pulse Rate 86 Respiratory Rate 18 18 18 Blood Pressure 118/55 L 132/76 Pulse Oximetry 96 97 06/01/18 21:45 06/02/18 00:00 06/02/18 06:00 Temperature 98.4 F 98.0 F Pulse Rate 87 77 Respiratory Rate 18 18 Blood Pressure 118/69 113/73 139/83 Pulse Oximetry 98 99 06/02/18 07:58 06/02/18 11:33 Temperature 97.2 F L 97 F L Pulse Rate 93 H 90 Respiratory Rate 20 20 Blood Pressure 115/58 L 118/60 Pulse Oximetry 96 96 Intake & Output 06/01/18 06/02/18 06/02/18 18:59 06:59 18:59 Intake Total 2162.5 / 2162.5 1100 / 1100 262.5 / 262.5 Balance 2162.5 / 2162.5 1100 / 1100 262.5 / 262.5 Weight 76.9 kg Intake: IV 1462.5 / 1462.5 1100 / 1100 262.5 / 262.5 NS Inj 1,000 ML @ 70 mls/hr IV. 1000 / 1000 1000 / 1000 CONT .[id number] [facility] Rx#: [id number] Zosyn 2.25 GM Premix 50 ML @ 100 / 100 100 mls/hr IV.SIG Q6H [facility] Rx#: [id number] Vancomycin Inj 1,250 MG In NS 262.5 / 262.5 262.5 / 262.5 Inj 250 ML @ 250 mls/hr IV.SIG Q12H [facility] Rx#:[id number] Ancef Inj 1,000 MG In NS Inj 100 / 100 100 / 100 100 ML @ 200 mls/hr IV.SIG Q8H [facility] Rx#:[id number] Oral 100 / 100 Oral Supplement 600 / 600 Other: # Voids 3 05/31/18 14:25 Blood - Peripheral Aerobic Blood Culture - Preliminary No growth in 2 days 05/31/18 14:25 Blood - Peripheral Anaerobic Blood Culture - Preliminary No growth in 2 days 05/31/18 14:30 Blood - Peripheral Aerobic Blood Culture - Preliminary No growth in 2 days 05/31/18 14:30 Blood - Peripheral Anaerobic Blood Culture - Preliminary No growth in 2 days Lab - Hematology Results 05/31/18 06/01/18 06/02/18 14:25 04:45 07:12 CBC w Diff Slide review pending WBC 26.1 H 24.6 H 22.0 H RBC 3.76 L 3.78 L 3.54 L Hgb 11.8 L 12.0 L 11.2 L Hct 35.7 L 35.9 L 33.3 L MCV 95.0 95.0 94.1 MCH 31.4 31.8 31.7 MCHC 33.1 33.5 33.6 RDW 13.6 13.6 13.5 Plt Count 178 193 207 MPV 10.2 10.6 9.9 Neut % (Auto) 89.0 H Lymph % (Auto) 2.4 L Foard % (Auto) 6.8 Eos % (Auto) 1.6 Baso % (Auto) 0.2 Neut # (Auto) 23.2 H Lymph # (Auto) 0.6 L Foard # (Auto) 1.8 H Eos # (Auto) 0.4 Baso # (Auto) 0.1 WBC Differential Manual diff final Seg Neuts % (Manual) 74 H Band Neuts % (Manual) 13 H Lymphocytes % (Manual) 4 L Monocytes % (Manual) 7 Eosinophils % (Manual) 2 Abs Neuts (Manual) 22.7 H Platelet Estimate Normal Platelet Morphology Normal Lab - Chemistry Results 05/31/18 05/31/18 06/01/18 14:25 15:55 04:45 Sodium 138 140 Potassium 3.8 3.9 Chloride 104 106 Carbon Dioxide 24.9 21.9 Anion Gap 9 12 BUN 42 H 34 H Creatinine 2.40 H 2.10 H Estimated GFR 27 L 31 L Random Glucose 103 96 Lactic Acid 1.0 Calcium 8.6 8.8 Total Bilirubin 0.6 AST 21 ALT 19 Alkaline Phosphatase 84 Total Protein 5.9 L Albumin 2.5 L 06/02/18 07:12 Sodium 140 Potassium 3.8 Chloride 109 H Carbon Dioxide 22.0 Anion Gap 9 BUN 25 H Creatinine 1.80 H Estimated GFR 37 L Random Glucose 132 H Lactic Acid Calcium 8.3 L Total Bilirubin AST ALT Alkaline Phosphatase Total Protein Albumin Imaging: ITS Impressions Venous Doppler Study 05/31/18 14:15 CONCLUSION: 1. No evidence of DVT. Physical Exam: Alert, Oriented x3 No pallor or icterus Oral cavity: No thrush Neck : Supple Chest : Clear Heart : S 1 S2 normal Abdomen: Soft Non tender, bowel sounds present Legs : No edema RUE - Erythema and induration slowly improving Assessment and Plan (1) Cellulitis Status: Acute Code(s): L03.90 - Cellulitis, unspecified (2) PMR (polymyalgia rheumatica) Status: Acute Code(s): M35.3 - Polymyalgia rheumatica (3) Descending aortic aneurysm Status: Acute Code(s): I71.9 - Aortic aneurysm of unspecified site, without rupture (4) Acute kidney injury superimposed on chronic kidney disease Status: Acute Code(s): N17.9 - Acute kidney failure, unspecified; N18.9 - Chronic kidney disease, unspecified (5) Hypertension Status: Chronic Code(s): I10 - Essential (primary) hypertension - Plan 1. Follow blood cultures 2. Continue IV Vancomycin- follow renal function closely. Pharmacy to dose and follow. 3. Continue IV Cefazolin 4. Follow CBC closely (1) Cellulitis Qualifiers: Site of cellulitis: extremity Site of cellulitis of extremity: upper extremity Laterality: right Qualified Code(s): L03.113 - Cellulitis of right upper limb
[2018-06-02] MEDS: hydroCHLOROthiazide 25 MG Tablet PO SCH (20:33)
[2018-06-03] MEDS: Sod Chloride 0.9% Inj 1,000 ML IV.CONT SCH ×2 (01:49→20:00)
[2018-06-03] MEDS ORDERED: Pharmacy Ordered Lab Info OTHER ONE (05:45)
[2018-06-03] MEDS: Vancomycin Inj 1,250 MG in Sodium Chlor 0.9% Inj 250 ML IV.SIG SCH ×2 (06:23→19:06)
[2018-06-03] MEDS: Labetalol 200 MG Tablet PO SCH ×2 (08:31→20:32)
--- NOTE | 2018-06-03 10:25 | P.PN ---
Subjective Interval history: overall doing better although reports some diarrhea over night. erythema and swelling of the right arm is improving. Physical Exam Vital signs: Vital Signs 06/02/18 11:33 06/02/18 15:36 06/02/18 20:00 Temperature 97 F L 97.4 F L 99.3 F Pulse Rate 90 89 88 Respiratory Rate 20 20 20 Blood Pressure 118/60 132/80 136/70 Pulse Oximetry 96 96 97 06/03/18 00:00 06/03/18 07:23 Temperature 98.9 F 96.5 F L Pulse Rate 85 85 Respiratory Rate 20 20 Blood Pressure 118/61 124/67 Pulse Oximetry 96 98 Intake & Output 06/02/18 06/03/18 06/03/18 18:59 06:59 18:59 Intake Total 1981.1981. 1182.5 / 1182.5 262.5 / 262.5 Balance 1981.5 1182.5 / 1182.5 262.5 / 262.5 Intake: IV 1262.5 / 1262.5 462.5 / 462.5 262.5 / 262.5 NS Inj 1,000 ML @ 70 mls/hr IV. 1000 / 1000 CONT .[id number] [facility] Rx#: [id number] Vancomycin Inj 1,250 MG In NS 262.5 / 262.5 262.5 / 262.5 262.5 / 262.5 Inj 250 ML @ 250 mls/hr IV.SIG Q12H [facility] Rx#:[id number] Ancef Inj 1,000 MG In NS Inj 200 / 200 100 ML @ 200 mls/hr IV.SIG Q8H [facility] Rx#:[id number] Oral 720 / 720 720 / 720 Other: # Voids 4 6 # Bowel Movements 1 - Constitutional no acute distress - Routine Respiratory Exam Present: CTA bilaterally - Routine Cardiovascular Exam Present: RRR - Routine Abdominal Exam Present: soft - Routine Extremities Exam Present: edema (right arm- continues to improve.) - Routine Neurological Exam Present: alert, oriented X3 Results - Labs CBC & Chem 7: 06/02/18 07:12 06/02/18 07:12 Microbiology 05/31/18 14:25 Blood - Peripheral Aerobic Blood Culture - Preliminary No growth in 2 days 05/31/18 14:25 Blood - Peripheral Anaerobic Blood Culture - Preliminary No growth in 2 days 05/31/18 14:30 Blood - Peripheral Aerobic Blood Culture - Preliminary No growth in 2 days 05/31/18 14:30 Blood - Peripheral Anaerobic Blood Culture - Preliminary No growth in 2 days Assessment and Plan - Assessment (1) Cellulitis Code(s): L03.90 - Cellulitis, unspecified Status: Acute Plan: improving- continue with broad-spectrum IV antibiotics; Vanco and Ancef- continue pain control- ID and hand surgery evaluation appreciated. (2) PMR (polymyalgia rheumatica) Code(s): M35.3 - Polymyalgia rheumatica Status: Acute Plan: patient has been on prednisone recently- says that had a reaction to prednisone and stopped taking it- f/u as outpatient. (3) Descending aortic aneurysm Code(s): I71.9 - Aortic aneurysm of unspecified site, without rupture Status: Acute Plan: BP management as noted- f/u as outpatient. (4) Acute kidney injury superimposed on chronic kidney disease Code(s): N17.9 - Acute kidney failure, unspecified; N18.9 - Chronic kidney disease, unspecified Status: Acute Plan: improving- monitor the renal function- (5) Hypertension Code(s): I10 - Essential (primary) hypertension Status: Chronic Plan: resumed home meds- will follow. (6) Diarrhea Code(s): R19.7 - Diarrhea, unspecified Status: Acute Plan: check the stool for c-diff. - Plan Discharge Planning: within the next 24-48 hrs - pending further clinical improvement. (1) Cellulitis Qualifiers: Site of cellulitis: extremity Site of cellulitis of extremity: upper extremity Laterality: right Qualified Code(s): L03.113 - Cellulitis of right upper limb
[2018-06-03] MEDS ORDERED: VANCOMYCIN TROUGH OTHER ONE (17:45)
[2018-06-03] MEDS: hydroCHLOROthiazide 25 MG Tablet PO SCH (20:32)
[2018-06-04 05:18] LABS: Hematocrit 30.6 % (39.0-51.0); Hemoglobin 10.9 gm/dL (13.0-17.0); Mean Corpuscular HGB Conc 35.7 % (32.0-36.0); Mean Corpuscular Hemoglobin 32.8 pg (27.0-34.0); Mean Corpuscular Volume 91.6 fL (80.0-100.0); Mean Platelet Volume 9.5 fL (7.0-11.0); Platelet Count 257 th/mm3 (150-450); Red Blood Count 3.34 mil/mm3 (4.50-5.90); Red Cell Distribution Width 13.9 % (11.6-17.2)
[2018-06-04 05:23] LABS: Potassium 3.6 meq/L (3.5-5.1)
[2018-06-04 05:25] LABS: Calcium 8.4 mg/dL (8.5-10.1)
[2018-06-04 05:26] LABS: Carbon Dioxide 20.6 meq/L (21.0-32.0)
[2018-06-04] MEDS: Sod Chloride 0.9% Inj 1,000 ML IV.CONT SCH ×2 (05:56→22:18)
--- NOTE | 2018-06-04 08:10 | P.PN ---
Subjective Interval history: in no acute distress.afebrile.erythema and swelling of the right arm has much improved. still with diarrhea but with no abdominal pain. Physical Exam Vital signs: Vital Signs 06/03/18 11:29 06/03/18 16:21 06/03/18 20:00 Temperature 98.2 F 97.4 F L 98.1 F Pulse Rate 82 77 86 Respiratory Rate 20 20 18 Blood Pressure 125/61 134/78 147/69 H Pulse Oximetry 96 94 L 96 06/03/18 21:44 06/04/18 00:00 Temperature 97.5 F L Pulse Rate 84 83 Respiratory Rate 16 20 Blood Pressure 111/74 120/68 Pulse Oximetry 98 99 Intake & Output 06/03/18 06/04/18 06/04/18 18:59 06:59 18:59 Intake Total 2202.5 / 2202.5 362.5 / 362.5 Balance 2202.5 / 2202.5 362.5 / 362.5 Weight 76.9 kg Intake: IV 1362.5 / 1362.5 362.5 / 362.5 NS Inj 1,000 ML @ 70 mls/hr IV. 1000 / 1000 CONT .[id number] [facility] Rx#: [id number] Vancomycin Inj 1,250 MG In NS 262.5 / 262.5 Inj 250 ML @ 250 mls/hr IV.SIG Q12H [facility] Rx#:[id number] Ancef Inj 1,000 MG In NS Inj 100 / 100 100 / 100 100 ML @ 200 mls/hr IV.SIG Q8H [facility] Rx#:[id number] Oral 840 / 840 Other: # Voids 5 Date of Last Bowel Movement 06/03/18 - Constitutional no acute distress - Routine Respiratory Exam Present: CTA bilaterally - Routine Cardiovascular Exam Present: RRR - Routine Abdominal Exam Present: soft - Routine Extremities Exam Present: edema (right arm swelling is improving.) - Routine Skin Exam Present: erythema (right arm erythema is improving.) - Routine Neurological Exam Present: alert, oriented X3 Results - Labs CBC & Chem 7: 06/04/18 05:02 06/04/18 05:02 Laboratory Results - last 24 hr 06/03/18 06/04/18 06/04/18 18:45 05:02 05:02 WBC 21.0 H RBC 3.34 L Hgb 10.9 L Hct 30.6 L MCV 91.6 MCH 32.8 MCHC 35.7 RDW 13.9 Plt Count 257 MPV 9.5 Sodium 137 Potassium 3.6 Chloride 104 Carbon Dioxide 20.6 L Anion Gap 12 BUN 22 H Creatinine 1.40 H Estimated GFR 50 L Random Glucose 92 Calcium 8.4 L Vancomycin Trough 26.2 H Microbiology 05/31/18 14:25 Blood - Peripheral Aerobic Blood Culture - Preliminary No growth in 3 days 05/31/18 14:25 Blood - Peripheral Anaerobic Blood Culture - Preliminary No growth in 3 days 05/31/18 14:30 Blood - Peripheral Aerobic Blood Culture - Preliminary No growth in 3 days 05/31/18 14:30 Blood - Peripheral Anaerobic Blood Culture - Preliminary No growth in 3 days Assessment and Plan - Assessment (1) Cellulitis Code(s): L03.90 - Cellulitis, unspecified Status: Acute Plan: improving- continue with broad-spectrum IV antibiotics; Vanco and Ancef- continue pain control- ID and hand surgery evaluation appreciated. (2) PMR (polymyalgia rheumatica) Code(s): M35.3 - Polymyalgia rheumatica Status: Acute Plan: patient has been on prednisone recently- says that had a reaction to prednisone and stopped taking it- f/u as outpatient. (3) Descending aortic aneurysm Code(s): I71.9 - Aortic aneurysm of unspecified site, without rupture Status: Acute Plan: BP management as noted- f/u as outpatient. (4) Acute kidney injury superimposed on chronic kidney disease Code(s): N17.9 - Acute kidney failure, unspecified; N18.9 - Chronic kidney disease, unspecified Status: Acute Plan: improving- monitor the renal function- (5) Hypertension Code(s): I10 - Essential (primary) hypertension Status: Chronic Plan: resumed home meds- will follow. (6) Diarrhea Code(s): R19.7 - Diarrhea, unspecified Status: Acute Plan: stool for c-diff pending. - Plan Discharge Planning: within the next 24-48 hrs - pending further clinical improvement and clearance from ID/ hand surgery- pending c-diff result. (1) Cellulitis Qualifiers: Site of cellulitis: extremity Site of cellulitis of extremity: upper extremity Laterality: right Qualified Code(s): L03.113 - Cellulitis of right upper limb
[2018-06-04] MEDS: Labetalol 200 MG Tablet PO SCH ×2 (09:07→22:15)
[2018-06-04] MEDS ORDERED: Loperamide 2 MG Capsule PO PRN (15:24)
--- NOTE | 2018-06-04 16:19 | P.PNID ---
Subjective Remarks: Right arm is better though still significant swelling in elbow area No fever Antibiotics: Vancomycin and Cefazolin Lines: Peripheral IV line Past Medical History: HTN Aortic Aneurysm Polymyalgia rheumatica Spinal stenosis Allergies/Adverse Reactions: Allergies MUSHROOM Allergy (Unknown, Uncoded 08/05/03 04:35) No Known Allergies Allergy (Uncoded 09/05/16 10:41) Objective Vital Signs 06/03/18 16:21 06/03/18 20:00 06/03/18 21:44 Temperature 97.4 F L 98.1 F Pulse Rate 77 86 84 Respiratory Rate 20 18 16 Blood Pressure 134/78 147/69 H 111/74 Pulse Oximetry 94 L 96 98 06/04/18 00:00 06/04/18 08:00 06/04/18 12:00 Temperature 97.5 F L 97.7 F 97.2 F L Pulse Rate 83 84 82 Respiratory Rate 20 17 17 Blood Pressure 120/68 141/80 H 124/78 Pulse Oximetry 99 95 97 Intake & Output 06/03/18 06/04/18 06/04/18 18:59 06:59 18:59 Intake Total 2202.5 / 2202.5 362.5 / 362.5 Balance 2202.5 / 2202.5 362.5 / 362.5 Weight 76.9 kg Intake: IV 1362.5 / 1362.5 362.5 / 362.5 NS Inj 1,000 ML @ 70 mls/hr IV. 1000 / 1000 CONT .[id number] [facility] Rx#: [id number] Vancomycin Inj 1,250 MG In NS 262.5 / 262.5 Inj 250 ML @ 250 mls/hr IV.SIG Q12H [facility] Rx#:[id number] Ancef Inj 1,000 MG In NS Inj 100 / 100 100 / 100 100 ML @ 200 mls/hr IV.SIG Q8H [facility] Rx#:[id number] Oral 840 / 840 Other: # Voids 5 Date of Last Bowel Movement 06/03/18 06/04/18 05/31/18 14:25 Blood - Peripheral Aerobic Blood Culture - Preliminary No growth in 4 days 05/31/18 14:25 Blood - Peripheral Anaerobic Blood Culture - Preliminary No growth in 4 days 05/31/18 14:30 Blood - Peripheral Aerobic Blood Culture - Preliminary No growth in 4 days 05/31/18 14:30 Blood - Peripheral Anaerobic Blood Culture - Preliminary No growth in 4 days Lab - Hematology Results 06/04/18 05:02 WBC 21.0 H RBC 3.34 L Hgb 10.9 L Hct 30.6 L MCV 91.6 MCH 32.8 MCHC 35.7 RDW 13.9 Plt Count 257 MPV 9.5 Lab - Chemistry Results 06/04/18 05:02 Sodium 137 Potassium 3.6 Chloride 104 Carbon Dioxide 20.6 L Anion Gap 12 BUN 22 H Creatinine 1.40 H Estimated GFR 50 L Random Glucose 92 Calcium 8.4 L Imaging: ITS Impressions Venous Doppler Study 05/31/18 14:15 CONCLUSION: 1. No evidence of DVT. Physical Exam: Alert, Oriented x3 No pallor or icterus Oral cavity: No thrush Neck : Supple Chest : Clear Heart : S 1 S2 normal Abdomen: Soft Non tender, bowel sounds present Legs : No edema RUE - Erythema and induration inoroved now more around rt elbow with fluctuance over olecranon process Assessment and Plan (1) Cellulitis Status: Acute Code(s): L03.90 - Cellulitis, unspecified (2) PMR (polymyalgia rheumatica) Status: Acute Code(s): M35.3 - Polymyalgia rheumatica (3) Descending aortic aneurysm Status: Acute Code(s): I71.9 - Aortic aneurysm of unspecified site, without rupture (4) Acute kidney injury superimposed on chronic kidney disease Status: Acute Code(s): N17.9 - Acute kidney failure, unspecified; N18.9 - Chronic kidney disease, unspecified (5) Hypertension Status: Chronic Code(s): I10 - Essential (primary) hypertension - Plan 1. Blood cultures- no growth 2. Continue IV Vancomycin- follow renal function closely. Pharmacy to dose and follow. 3. Continue IV Cefazolin 4. Follow CBC closely 5. Persistent leucocytosis with fluctuance so will get MR rt elbow with no contrast 6 Stool C diff negative (1) Cellulitis Qualifiers: Site of cellulitis: extremity Site of cellulitis of extremity: upper extremity Laterality: right Qualified Code(s): L03.113 - Cellulitis of right upper limb
[2018-06-04] MEDS: Lactobacillus Acidophilus/L. Spores Tablet PO SCH (22:13)
[2018-06-04] MEDS: hydroCHLOROthiazide 25 MG Tablet PO SCH (22:15)
[2018-06-05] MEDS ORDERED: VANCOMYCIN OTHER ONE (06:00)
[2018-06-05] MEDS: Lactobacillus Acidophilus/L. Spores Tablet PO SCH ×2 (08:31→21:34)
--- NOTE | 2018-06-05 08:56 | P.PN ---
Subjective Interval history: in no acute distress but uncomfortable with the back pain.pain to the left arm is better and remains afebrile. diarrhea is better. Physical Exam Vital signs: Vital Signs 06/04/18 12:00 06/04/18 16:00 06/04/18 20:00 Temperature 97.2 F L 98.0 F 97.9 F Pulse Rate 82 80 66 Respiratory Rate 17 17 20 Blood Pressure 124/78 139/83 144/97 H Pulse Oximetry 97 98 96 06/05/18 00:00 06/05/18 06:53 Temperature 97.4 F L 96.8 F L Pulse Rate 77 72 Respiratory Rate 20 18 Blood Pressure 136/83 140/78 Pulse Oximetry 97 98 Intake & Output 06/04/18 06/05/18 06/05/18 18:59 06:59 18:59 Intake Total 1060 / 1060 1200 / 1200 Output Total 720 / 720 Balance 1060 / 1060 480 / 480 Weight 75.1 kg Intake: IV 100 / 100 1200 / 1200 NS Inj 1,000 ML @ 70 mls/hr IV. 1000 / 1000 CONT .[id number] [facility] Rx#: [id number] Ancef Inj 1,000 MG In NS Inj 100 / 100 200 / 200 100 ML @ 200 mls/hr IV.SIG Q8H [facility] Rx#:[id number] Oral 960 / 960 Output: Urine 720 / 720 Other: # Voids 5 6 Date of Last Bowel Movement 06/04/18 06/04/18 # Bowel Movements 1 - Constitutional no acute distress - Routine Respiratory Exam Present: CTA bilaterally - Routine Cardiovascular Exam Present: RRR - Routine Abdominal Exam Present: soft - Routine Extremities Exam Present: edema (right arm swelling is better although still with some edema and tenderness over the right elbow.) - Routine Skin Exam Present: erythema (of the right arm is better.) - Routine Neurological Exam Present: alert, oriented X3 Results - Labs CBC & Chem 7: 06/04/18 05:02 06/04/18 05:02 Laboratory Results - last 24 hr 06/03/18 06/04/18 21:00 05:02 Stl C.difficile Tox PCR Negative St C. diff Tox Epid 027 Negative Random Vancomycin 31.0 Microbiology 05/31/18 14:25 Blood - Peripheral Aerobic Blood Culture - Preliminary No growth in 4 days 05/31/18 14:25 Blood - Peripheral Anaerobic Blood Culture - Preliminary No growth in 4 days 05/31/18 14:30 Blood - Peripheral Aerobic Blood Culture - Preliminary No growth in 4 days 05/31/18 14:30 Blood - Peripheral Anaerobic Blood Culture - Preliminary No growth in 4 days Assessment and Plan - Assessment (1) Cellulitis Code(s): L03.90 - Cellulitis, unspecified Status: Acute Plan: improving- continue with broad-spectrum IV antibiotics; Vanco and Ancef- continue pain control- MRI of the right elbow pending- evaluated by ID and hand surgery. (2) PMR (polymyalgia rheumatica) Code(s): M35.3 - Polymyalgia rheumatica Status: Acute Plan: patient has been on prednisone recently- says that had a reaction to prednisone and stopped taking it- f/u as outpatient. (3) Descending aortic aneurysm Code(s): I71.9 - Aortic aneurysm of unspecified site, without rupture Status: Acute Plan: BP management as noted- f/u as outpatient. (4) Acute kidney injury superimposed on chronic kidney disease Code(s): N17.9 - Acute kidney failure, unspecified; N18.9 - Chronic kidney disease, unspecified Status: Acute Plan: improving- monitor the renal function- (5) Hypertension Code(s): I10 - Essential (primary) hypertension Status: Chronic Plan: resumed home meds- will follow. (6) Diarrhea Code(s): R19.7 - Diarrhea, unspecified Status: Acute Plan: better- stool for c-diff negative. - Plan Discharge Planning: pending MRI of the elbow and ID clearance. (1) Cellulitis Qualifiers: Site of cellulitis: extremity Site of cellulitis of extremity: upper extremity Laterality: right Qualified Code(s): L03.113 - Cellulitis of right upper limb
[2018-06-05] MEDS: Labetalol 200 MG Tablet PO SCH ×2 (09:02→21:34)
[2018-06-05 10:01] LABS: Calcium 8.5 mg/dL (8.5-10.1); Carbon Dioxide 22.3 meq/L (21.0-32.0); Potassium 3.6 meq/L (3.5-5.1)
[2018-06-05 10:11] LABS: Hematocrit 31.2 % (39.0-51.0); Hemoglobin 11.1 gm/dL (13.0-17.0); Mean Corpuscular HGB Conc 35.7 % (32.0-36.0); Mean Corpuscular Hemoglobin 32.6 pg (27.0-34.0); Mean Corpuscular Volume 91.5 fL (80.0-100.0); Mean Platelet Volume 8.8 fL (7.0-11.0); Platelet Count 267 th/mm3 (150-450); Red Blood Count 3.41 mil/mm3 (4.50-5.90); Red Cell Distribution Width 14.1 % (11.6-17.2); White Blood Count 21.4 th/mm3 (4.0-11.0)
[2018-06-05] MEDS: Sod Chloride 0.9% Inj 1,000 ML IV.CONT SCH (11:23)
--- NOTE | 2018-06-05 16:18 | P.PNPLA ---
Subjective Remarks: The patient reports that the forearm no longer bothers him. Objective Vital Signs: Vital Signs - 24 hr 06/04/18 20:00 06/05/18 00:00 06/05/18 06:53 Temperature 97.9 F 97.4 F L 96.8 F L Pulse Rate 66 77 72 Respiratory Rate 20 20 18 Blood Pressure 144/97 H 136/83 140/78 Pulse Oximetry 96 97 98 06/05/18 08:00 06/05/18 09:54 06/05/18 12:00 Temperature 97.4 F L 97.6 F Pulse Rate 80 73 Respiratory Rate 17 16 17 Blood Pressure 123/77 162/75 H Pulse Oximetry 98 99 Intake & Output 06/03/18 06/04/18 06/05/18 06/06/18 06:59 06:59 06:59 06:59 Intake Total 3165.0 / 3165.0 2565.0 / 2565.0 2260 / 2260 1100 / 1100 Output Total 720 / 720 Balance 3165.0 / 3165.0 2565.0 / 2565.0 1540 / 1540 1100 / 1100 Weight 76.9 kg 75.1 kg Laboratory Results: Laboratory Results - last 24 hr 06/05/18 06/05/18 06/05/18 08:20 08:20 10:00 WBC 21.4 H RBC 3.41 L Hgb 11.1 L Hct 31.2 L MCV 91.5 MCH 32.6 MCHC 35.7 RDW 14.1 Plt Count 267 MPV 8.8 Sodium 136 Potassium 3.6 Chloride 102 Carbon Dioxide 22.3 Anion Gap 12 BUN 20 H Creatinine 1.30 Estimated GFR 54 L Random Glucose 129 H Calcium 8.5 Random Vancomycin 14.6 Microbiology 05/31/18 14:25 Aerobic Blood Culture - Final Blood - Peripheral No growth in 5 days Anaerobic Blood Culture - Final No growth in 5 days 05/31/18 14:30 Aerobic Blood Culture - Final Blood - Peripheral No growth in 5 days Anaerobic Blood Culture - Final No growth in 5 days Result Diagrams: 06/05/18 10:00 06/05/18 08:20 Exam Findings: There is less swelling of the arm. He continues to have a significant amount of induration, although it is much improved. There is much less redness. He has much better range of motion. Assessment and Plan - Diagnosis (1) Cellulitis Status: Acute Code(s): L03.90 - Cellulitis, unspecified - Plan Impression: The patient has improved. Plan:The patient will not require surgery and can be discharged when the cellulitis clears. (1) Cellulitis Qualifiers: Site of cellulitis: extremity Site of cellulitis of extremity: upper extremity Laterality: right Qualified Code(s): L03.113 - Cellulitis of right upper limb
--- NOTE | 2018-06-05 19:51 | MR ---
EXAM DATE: 06/05/2018 1:01 PM EDT AGE/SEX: 73 years / Male INDICATIONS: . Cellulitis right elbow. Rt elbow red and swollen. CLINICAL DATA: This is the patient's initial encounter. Patient reports that signs and symptoms have been present for 4 - 6 days and indicates a pain score of 5/10. MEDICAL/SURGICAL HISTORY: Spinal stenosis. Aortic aneurysm. Fusion, lumbar. COMPARISON: No prior exams available for comparison. TECHNIQUE: Multiplanar, multisequence MRI examination was performed without contrast. FINDINGS: Study is motion degraded. There is diffuse subcutaneous edema without anything clearly organized or d rainable. There is a small, nonspecific joint effusion. No fracture or subluxation demonstrated. No s ignal changes to suggest osteomyelitis. No perceptible internal derangement. CONCLUSION: Motion degraded study. Diffuse subcutaneous edema without evidence of abscess or osteomy elitis. Electronically signed by: Tavo Faith MD 06/05/2018 7:49 PM EDT
[2018-06-05] MEDS ORDERED: Vancomycin Inj 1,000 MG in Sodium Chlor 0.9% Inj 250 ML IV.SIG ONE (20:00)
--- NOTE | 2018-06-05 20:25 | P.PNID ---
Subjective Remarks: Right arm is better though still significant swelling in elbow area No fever He was not able to tolerate the MRI today He is having a lot of pain currently Antibiotics: Vancomycin and Cefazolin Lines: Peripheral IV line Past Medical History: HTN Aortic Aneurysm Polymyalgia rheumatica Spinal stenosis Allergies/Adverse Reactions: Allergies MUSHROOM Allergy (Unknown, Uncoded 08/05/03 04:35) No Known Allergies Allergy (Uncoded 09/05/16 10:41) Objective Vital Signs 06/05/18 00:00 06/05/18 06:53 06/05/18 08:00 Temperature 97.4 F L 96.8 F L 97.4 F L Pulse Rate 77 72 80 Respiratory Rate 20 18 17 Blood Pressure 136/83 140/78 123/77 Pulse Oximetry 97 98 98 06/05/18 09:54 06/05/18 12:00 06/05/18 16:00 Temperature 97.6 F 97.6 F Pulse Rate 73 75 Respiratory Rate 16 17 17 Blood Pressure 162/75 H 142/74 H Pulse Oximetry 99 97 Intake & Output 06/05/18 06/05/18 06/06/18 06:59 18:59 06:59 Intake Total 1200 / 1200 1820 / 1820 Output Total 720 / 720 Balance 480 / 480 1820 / 1820 Weight 75.1 kg Intake: IV 1200 / 1200 1100 / 1100 NS Inj 1,000 ML @ 70 mls/hr IV. 1000 / 1000 1000 / 1000 CONT .[id number] [facility] Rx#: [id number] Ancef Inj 1,000 MG In NS Inj 200 / 200 100 / 100 100 ML @ 200 mls/hr IV.SIG Q8H [facility] Rx#:[id number] Oral 720 / 720 Output: Urine 720 / 720 Other: # Voids 6 6 Date of Last Bowel Movement 06/04/18 # Bowel Movements 1 05/31/18 14:25 Blood - Peripheral Aerobic Blood Culture - Final No growth in 5 days 05/31/18 14:25 Blood - Peripheral Anaerobic Blood Culture - Final No growth in 5 days 05/31/18 14:30 Blood - Peripheral Aerobic Blood Culture - Final No growth in 5 days 05/31/18 14:30 Blood - Peripheral Anaerobic Blood Culture - Final No growth in 5 days Lab - Hematology Results 06/04/18 06/05/18 05:02 10:00 WBC 21.0 H 21.4 H RBC 3.34 L 3.41 L Hgb 10.9 L 11.1 L Hct 30.6 L 31.2 L MCV 91.6 91.5 MCH 32.8 32.6 MCHC 35.7 35.7 RDW 13.9 14.1 Plt Count 257 267 MPV 9.5 8.8 Lab - Chemistry Results 06/04/18 06/05/18 05:02 08:20 Sodium 137 136 Potassium 3.6 3.6 Chloride 104 102 Carbon Dioxide 20.6 L 22.3 Anion Gap 12 12 BUN 22 H 20 H Creatinine 1.40 H 1.30 Estimated GFR 50 L 54 L Random Glucose 92 129 H Calcium 8.4 L 8.5 Imaging: ITS Impressions Venous Doppler Study 05/31/18 14:15 CONCLUSION: 1. No evidence of DVT. Elbow MRI 06/05/18 00:00 CONCLUSION: Motion degraded study. Diffuse subcutaneous edema without evidence of abscess or osteomyelitis. Physical Exam: Alert, Oriented x3 No pallor or icterus Oral cavity: No thrush Neck : Supple Chest : Clear Heart : S 1 S2 normal Abdomen: Soft Non tender, bowel sounds present Legs : No edema RUE - Erythema and induration inoroved now more around rt elbow with fluctuance over olecranon process redness has improved but is better tenderness is better today Assessment and Plan - Plan 1. Blood cultures- no growth 2. Continue IV Vancomycin- follow renal function closely. Pharmacy to dose and follow. 3. Continue IV Cefazolin 4. Follow CBC closely 5. Persistent leucocytosis with fluctuance so will get MR rt elbow with no contrast 6 Stool C diff negative 7. will order a us or right elbow and assess for fluid
[2018-06-05] MEDS: hydroCHLOROthiazide 25 MG Tablet PO SCH (21:34)
[2018-06-06] MEDS: Sod Chloride 0.9% Inj 1,000 ML IV.CONT SCH ×2 (01:44→17:45)
[2018-06-06] MEDS: Labetalol 200 MG Tablet PO SCH ×2 (09:00→20:52)
[2018-06-06] MEDS: Lactobacillus Acidophilus/L. Spores Tablet PO SCH ×2 (09:00→20:52)
[2018-06-06 09:26] LABS: Hematocrit 30.5 % (39.0-51.0); Hemoglobin 10.7 gm/dL (13.0-17.0); Mean Corpuscular HGB Conc 35.1 % (32.0-36.0); Mean Corpuscular Hemoglobin 32.4 pg (27.0-34.0); Mean Corpuscular Volume 92.2 fL (80.0-100.0); Mean Platelet Volume 9.5 fL (7.0-11.0); Platelet Count 273 th/mm3 (150-450); Red Blood Count 3.31 mil/mm3 (4.50-5.90); Red Cell Distribution Width 14.1 % (11.6-17.2); White Blood Count 20.2 th/mm3 (4.0-11.0)
--- NOTE | 2018-06-06 12:47 | P.PN ---
Subjective Interval history: overall feeling better with improved pain to the back and right arm. no fever. swelling and erythema of the right arm has much improved. Physical Exam Vital signs: Vital Signs 06/05/18 16:00 06/05/18 20:00 06/06/18 00:00 Temperature 97.6 F 97.5 F L 97.8 F Pulse Rate 75 77 70 Respiratory Rate 17 16 16 Blood Pressure 142/74 H 131/75 119/70 Pulse Oximetry 97 97 98 Intake & Output 06/05/18 06/06/18 06/06/18 18:59 06:59 18:59 Intake Total 1820 / 1820 1750 / 1750 Balance 1820 / 1820 1750 / 1750 Weight 74.9 kg Intake: IV 1100 / 1100 1750 / 1750 NS Inj 1,000 ML @ 70 mls/hr IV. 1000 / 1000 1300 / 1300 CONT .[id number] [facility] Rx#: [id number] Vancomycin Inj 1,000 MG In NS 250 / 250 Inj 250 ML @ 250 mls/hr IV.SIG ONCE ONE Rx#:[id number] Ancef Inj 1,000 MG In NS Inj 100 / 100 200 / 200 100 ML @ 200 mls/hr IV.SIG Q8H [facility] Rx#:[id number] Oral 720 / 720 Other: # Voids 6 3 Date of Last Bowel Movement 06/04/18 06/05/18 # Bowel Movements 1 - Routine Respiratory Exam Present: CTA bilaterally - Routine Cardiovascular Exam Present: RRR - Routine Abdominal Exam Present: soft - Routine Extremities Exam Present: edema (right arm swelling has much improved.) - Routine Skin Exam Present: erythema (of the right arm has much improved.) - Routine Neurological Exam Present: alert, oriented X3 Results - Labs CBC & Chem 7: 06/06/18 07:20 06/05/18 08:20 Laboratory Results - last 24 hr 06/06/18 06/06/18 07:20 07:20 WBC 20.2 H RBC 3.31 L Hgb 10.7 L Hct 30.5 L MCV 92.2 MCH 32.4 MCHC 35.1 RDW 14.1 Plt Count 273 MPV 9.5 Random Vancomycin 20.1 Microbiology 05/31/18 14:25 Blood - Peripheral Aerobic Blood Culture - Final No growth in 5 days 05/31/18 14:25 Blood - Peripheral Anaerobic Blood Culture - Final No growth in 5 days 05/31/18 14:30 Blood - Peripheral Aerobic Blood Culture - Final No growth in 5 days 05/31/18 14:30 Blood - Peripheral Anaerobic Blood Culture - Final No growth in 5 days - Imaging Impressions Elbow MRI 06/05/18 00:00 CONCLUSION: Motion degraded study. Diffuse subcutaneous edema without evidence of abscess or osteomyelitis. Assessment and Plan - Assessment (1) Cellulitis Code(s): L03.90 - Cellulitis, unspecified Status: Acute Plan: improving-antibiotics per ID-continue pain control- MRI of the right elbow with no abscess or osteomyelitis- evaluated by ID and hand surgery. (2) PMR (polymyalgia rheumatica) Code(s): M35.3 - Polymyalgia rheumatica Status: Acute Plan: patient has been on prednisone recently- says that had a reaction to prednisone and stopped taking it- f/u as outpatient. (3) Descending aortic aneurysm Code(s): I71.9 - Aortic aneurysm of unspecified site, without rupture Status: Acute Plan: BP management as noted- f/u as outpatient. (4) Leukocytosis Code(s): D72.829 - Elevated white blood cell count, unspecified Status: Acute Plan: persistent- but afebrile and with no new complaints. awaiting ID f/u and recommendations. (5) Acute kidney injury superimposed on chronic kidney disease Code(s): N17.9 - Acute kidney failure, unspecified; N18.9 - Chronic kidney disease, unspecified Status: Acute Plan: improving- monitor the renal function- (6) Hypertension Code(s): I10 - Essential (primary) hypertension Status: Chronic Plan: resumed home meds- will follow. (7) Diarrhea Code(s): R19.7 - Diarrhea, unspecified Status: Acute Plan: better- stool for c-diff negative. - Plan Discharge Planning: when ok with ID. (1) Cellulitis Qualifiers: Site of cellulitis: extremity Site of cellulitis of extremity: upper extremity Laterality: right Qualified Code(s): L03.113 - Cellulitis of right upper limb
[2018-06-06] MEDS ORDERED: Vancomycin Inj 1 GM/200 ML PIGGYBACK IV.SIG SCH (18:00)
--- NOTE | 2018-06-06 18:32 | P.PNID ---
Subjective Remarks: Right arm is better No fever Lost IV line and wants to be changed to PO Antibiotics: Vancomycin and Cefazolin Lines: Peripheral IV line Past Medical History: HTN Aortic Aneurysm Polymyalgia rheumatica Spinal stenosis Allergies/Adverse Reactions: Allergies MUSHROOM Allergy (Unknown, Uncoded 08/05/03 04:35) No Known Allergies Allergy (Uncoded 09/05/16 10:41) Objective Vital Signs 06/05/18 20:00 06/06/18 00:00 06/06/18 16:11 Temperature 97.5 F L 97.8 F Pulse Rate 77 70 Respiratory Rate 16 16 12 Blood Pressure 131/75 119/70 Pulse Oximetry 97 98 Intake & Output 06/05/18 06/06/18 06/06/18 18:59 06:59 18:59 Intake Total 1820 / 1820 1750 / 1750 100 / 100 Balance 1820 / 1820 1750 / 1750 100 / 100 Weight 74.9 kg Intake: IV 1100 / 1100 1750 / 1750 100 / 100 NS Inj 1,000 ML @ 70 mls/hr IV. 1000 / 1000 1300 / 1300 CONT .[id number] [facility] Rx#: [id number] Vancomycin Inj 1,000 MG In NS 250 / 250 Inj 250 ML @ 250 mls/hr IV.SIG ONCE ONE Rx#:[id number] Ancef Inj 1,000 MG In NS Inj 100 / 100 200 / 200 100 / 100 100 ML @ 200 mls/hr IV.SIG Q8H [facility] Rx#:[id number] Oral 720 / 720 Other: # Voids 6 3 Date of Last Bowel Movement 06/04/18 06/05/18 # Bowel Movements 1 05/31/18 14:25 Blood - Peripheral Aerobic Blood Culture - Final No growth in 5 days 05/31/18 14:25 Blood - Peripheral Anaerobic Blood Culture - Final No growth in 5 days 05/31/18 14:30 Blood - Peripheral Aerobic Blood Culture - Final No growth in 5 days 05/31/18 14:30 Blood - Peripheral Anaerobic Blood Culture - Final No growth in 5 days Lab - Hematology Results 06/05/18 06/06/18 10:00 07:20 WBC 21.4 H 20.2 H RBC 3.41 L 3.31 L Hgb 11.1 L 10.7 L Hct 31.2 L 30.5 L MCV 91.5 92.2 MCH 32.6 32.4 MCHC 35.7 35.1 RDW 14.1 14.1 Plt Count 267 273 MPV 8.8 9.5 Lab - Chemistry Results 06/05/18 08:20 Sodium 136 Potassium 3.6 Chloride 102 Carbon Dioxide 22.3 Anion Gap 12 BUN 20 H Creatinine 1.30 Estimated GFR 54 L Random Glucose 129 H Calcium 8.5 Imaging: ITS Impressions Venous Doppler Study 05/31/18 14:15 CONCLUSION: 1. No evidence of DVT. Elbow MRI 06/05/18 00:00 CONCLUSION: Motion degraded study. Diffuse subcutaneous edema without evidence of abscess or osteomyelitis. Physical Exam: Alert, Oriented x3 No pallor or icterus Oral cavity: No thrush Neck : Supple Chest : Clear Heart : S 1 S2 normal Abdomen: Soft Non tender, bowel sounds present Legs : No edema RUE - Erythema and induration iof rt arm and elbow area all markedly improved Assessment and Plan (1) Cellulitis Status: Acute Code(s): L03.90 - Cellulitis, unspecified (2) PMR (polymyalgia rheumatica) Status: Acute Code(s): M35.3 - Polymyalgia rheumatica (3) Descending aortic aneurysm Status: Acute Code(s): I71.9 - Aortic aneurysm of unspecified site, without rupture (4) Acute kidney injury superimposed on chronic kidney disease Status: Acute Code(s): N17.9 - Acute kidney failure, unspecified; N18.9 - Chronic kidney disease, unspecified (5) Hypertension Status: Chronic Code(s): I10 - Essential (primary) hypertension - Plan 1. Blood cultures- no growth 2. Stop IV Vancomycin- follow renal function closely. Pharmacy to dose and follow. 3. Stop IV Cefazolin 4. Will put patient on Cefuroxime 500 mg po bid with Doxy 100 mg po bid (1) Cellulitis Qualifiers: Site of cellulitis: extremity Site of cellulitis of extremity: upper extremity Laterality: right Qualified Code(s): L03.113 - Cellulitis of right upper limb
[2018-06-06] MEDS: hydroCHLOROthiazide 25 MG Tablet PO SCH (20:52)
[2018-06-07] MEDS: Lactobacillus Acidophilus/L. Spores Tablet PO SCH (08:56)
[2018-06-07] MEDS: Labetalol 200 MG Tablet PO SCH (08:56)
--- NOTE | 2018-06-07 12:34 | P.DS ---
Date of admission: 05/31/18 15:21 Primary care physician: Nirav Wakefield MD Brief History from admission: Patient is a 73 y/o male who presented to ER with swelling of the right arm. he says that he hit his hand to something a few days ago when he was walking.after which he started to notice some swelling and redness of the right arm. he denies any fever or chills but he says that the right arm is painful. DS: Diagnosis - Discharge Diagnosis (1) Cellulitis Status: Acute (2) PMR (polymyalgia rheumatica) Status: Acute (3) Descending aortic aneurysm Status: Acute (4) Acute kidney injury superimposed on chronic kidney disease Status: Acute (5) Hypertension Status: Chronic (6) Diarrhea Status: Acute (7) Leukocytosis Status: Acute DS: Medications - Discharge Medications Prescriptions: cefuroxime axetil 500 mg PO Q12HR 13 Days #26 tab doxycycline hyclate 100 mg PO Q12HR 13 Days #26 cap hydrocodone-acetaminophen 1 tab PO Q6H PRN #10 tab PRN Reason: acute pain 4-10 DS: Summary Hospital Course: This is a 73-year-old patient who presented with right upper extremity erythema and induration and pain. Diagnosed with cellulitis. Seen by infectious disease , was started on IV vancomycin as well as IV Cefzil and. Renal function improved upon discharge. Blood cultures no growth to date. Patient still with leukocytosis although improving, spoke with infectious disease and okay to discharge home with follow-up in 2 weeks. Will discharge home on cefuroxime as well as doxycycline. Patient has a history of polymyalgia rheumatica will follow up outpatient. Also with a descending aortic aneurysm. Patient will be advised to follow-up with PCP. To finish all antibiotics as ordered. If symptoms worsen patient is encouraged to come back to the ER. Patient is stable at this time and agreeable to the plan. Denies any needs for home upon discharge. - Time Spent with Patient Total time spent providing and/or coordinating discharge services: Greater than 30 minutes - Quality: VTE Deep Vein Thrombosis/Pulmonary Embolism Present on Admission: No Exam Vital signs: Vital Signs 06/06/18 16:00 06/06/18 16:11 06/06/18 20:00 Temperature 97.1 F L 98.3 F Pulse Rate 80 75 Respiratory Rate 20 12 20 Blood Pressure 139/71 148/79 H Pulse Oximetry 100 98 06/06/18 20:54 06/07/18 00:00 06/07/18 04:00 Temperature 98 F Pulse Rate 72 77 Respiratory Rate 18 20 18 Blood Pressure 120/65 115/77 Pulse Oximetry 97 06/07/18 09:10 Temperature 96.2 F L Pulse Rate 85 Respiratory Rate 16 Blood Pressure 119/65 Pulse Oximetry 99 Intake & Output 06/06/18 06/07/18 06/07/18 18:59 06:59 18:59 Intake Total 1382 / 1382 960 / 960 Balance 1382 / 1382 960 / 960 Weight 74.9 kg Intake: IV 100 / 100 Ancef Inj 1,000 MG In NS Inj 100 / 100 100 ML @ 200 mls/hr IV.SIG Q8H [place] Rx#:[id number] Oral 1282 / 1282 960 / 960 Other: # Voids 11 4 Date of Last Bowel Movement 06/05/18 06/05/18 06/07/18 # Bowel Movements 1 1 Narrative: GENERAL: Well-developed, well-nourished patient in NAD. SKIN: Warm and dry. No rash. Right upper extremity erythema and induration around the elbow area. Has been improving. HEAD: Normocephalic. Atraumatic. EYES: Pupils equal and round. No scleral icterus. No injection or drainage. ENT: No nasal bleeding or discharge. Mucous membranes pink and moist. NECK: Supple. Trachea midline. CARDIOVASCULAR: Regular rate and rhythm. S1, S2 noted. No murmur appreciated. RESPIRATORY: No accessory muscle use. Clear to auscultation. Breath sounds equal bilaterally. GASTROINTESTINAL: Abdomen soft, non-tender, nondistended. Normoactive bowel sounds x4. MUSCULOSKELETAL: No obvious deformities. NEUROLOGICAL: Awake and alert. No obvious cranial nerve deficits. Motor grossly within normal limits. 5/5 muscle strength in bilateral upper and lower extremities. Normal speech. - Constitutional no acute distress - Routine HEENT Exam Head: Present: normocephalic Eye: Present: EOMI, PERRL ENT: Present: mucous membranes moist - Routine Neck Exam Present: supple Results Procedures completed during hospitalization: Please see DC summary. - Impressions ITS Impressions Venous Doppler Study 05/31/18 14:15 CONCLUSION: 1. No evidence of DVT. Elbow MRI 06/05/18 00:00 CONCLUSION: Motion degraded study. Diffuse subcutaneous edema without evidence of abscess or osteomyelitis. Discharge Plan - Discharge Disposition Patient Disposition: 01 Discharge Home - Discharge Condition Condition: Good - Discharge Order Discharge Orders: Discharge Order (Routine); Ordered 06/07/18 Ordered By: Katerine Mckeon - Discharge Details Anticipated Discharge Date: 06/07/18 - Physicians Team Primary Care Provider: Nirav Wakefield Attending Provider: Janett Asencio Other Providers: Simona Soriano MD ; Analia Martinez MD
[2018-06-08] MEDS ORDERED: Pharmacy Ordered Lab Info OTHER ONE (23:45)
== END 2018-06-07 14:13 | disposition home or self-care (01) ==
LOC: PHED 12:46 → PHEDA 15:21 → PH3 16:45
PROVIDERS: ADMIT Hospitalist; ATTEND Hospitalist

== ENCOUNTER 2018-09-30 11:43 | Inpatient (IN) ==
[2018-09-30] MEDS ORDERED: HYDROmorphone PF Inj 1 MG/50 ML BAG IV.SIG ONE (12:42)
--- NOTE | 2018-09-30 12:50 | ED ---
HPI General Chief Complaint: Eye Problems Stated Complaint: medical Time Seen by Provider: 09/30/18 12:28 Source: patient Mode of arrival: ambulatory Limitations: no limitations History of Present Illness HPI Narrative: PATIENT C/O HEADACHE THAT HAS BEEN GOING ON FOR 2 DAYS, STARTING LAST NIGHT HE STARTED TO HAVE VISUAL DEFICITS TO HIS PERIPHERAL VISION , PARTICULARLY ON THE RIGHT PERIPHERAL No known drug allergy however the patient does develop nausea to codeine Patient has a history of chronic kidney disease polymyalgia rheumatica and a descending aortic aneurysm which is been successfully treated with antihypertensives. MD Complaint: Reports headache Onset (ago): day(s) (2) Onset description: gradual Location: Reports frontal Severity: severe Severity scale (1-10): 8 Quality: Reports throbbing and squeezing Relieving factors: other (Tylenol) Exacerbating factors: none Associated symptoms: Reports none Treatments prior to arrival: Reports none (Despite the fact that previously the headache was relieved by Tylenol, today the patient did not take any medications prior to arrival) Related Data Home Medications Medication Instructions Recorded Confirmed clonidine HCl 0.1 mg PO Q8HR 05/31/18 09/30/18 enalapril maleate 5 mg PO DAILY 05/31/18 09/30/18 hydrochlorothiazide 50 mg PO DAILY 05/31/18 09/30/18 labetalol 200 mg PO BID 05/31/18 09/30/18 tramadol 50 mg PO BID PRN 05/31/18 09/30/18 hydroxychloroquine 200 mg PO Q OTHER DAY 09/30/18 09/30/18 leflunomide 20 mg PO DAILY 09/30/18 09/30/18 Allergies Allergy/AdvReac Type Severity Reaction Status Date / Time codeine AdvReac Nausea Verified 09/30/18 12:18 MUSHROOM Allergy Unknown Anaphylaxis Uncoded 09/30/18 12:18 Review of Systems ROS: all other systems reviewed are negative PMFSH History History Provided By: Patient Medical History Medical History H/O aortic aneurysm (Acute) H/O polymyalgia rheumatica (Acute) H/O scoliosis (Acute) H/O spinal stenosis (Acute) Surgical History Surgical History History of back surgery (Acute) Social History Social History Substance History: No History of Abuse Second Hand Smoke Exposure: No Smoking Status: Never smoker Tobacco Type: Cigarettes How Often Do You Have a Drink Containing Alcohol: Never Recent Travel in [facility] within the Last 8 Weeks: No Recent Out of Country Travel within the Last 8 Weeks: No Immunization History Tetanus Immunization: <5 Years Tetanus Immunization Year if Known: 2014 Exam Narrative Exam Narrative: GENERAL: Well-nourished, well-developed patient in no apparent distress. SKIN: Warm and dry. HEAD: Atraumatic. Normocephalic. EYES: Pupils equal and round. No scleral icterus. No injection or drainage. ENT: No nasal bleeding or discharge. Mucous membranes pink and moist. NECK: Trachea midline. No JVD. CARDIOVASCULAR: Regular rate and rhythm. no rubs or gallops RESPIRATORY: No accessory muscle use. Clear to auscultation. Breath sounds equal bilaterally. GASTROINTESTINAL: Abdomen soft, non-tender, nondistended. No rebound or guarding MUSCULOSKELETAL: Extremities without clubbing, cyanosis, or edema. No obvious deformities. NEUROLOGICAL: Awake and alert. No obvious cranial nerve deficits. Motor grossly within normal limits. Five out of 5 muscle strength in the arms and legs. Normal speech. ON CONFRONTATION APPEARED TO HAVE RIGHT EYE PERIPHERAL VISUAL DEFICITS, INTACT CENTRALLY...LEFT VISUAL SHARP APPEAR ALL INTACT. PSYCHIATRIC: Appropriate mood and affect; insight and judgment normal. Course Initial Documented Vital Signs Temperature 97.1 F L 09/30/18 11:47 Pulse Rate 108 H 09/30/18 11:47 Respiratory Rate 17 09/30/18 11:47 Blood Pressure 97/63 L 09/30/18 11:47 Pulse Oximetry 97 09/30/18 11:47 Last Documented Vital Signs Temperature 97.1 F L 09/30/18 11:47 Pulse Rate 82 09/30/18 13:15 Respiratory Rate 15 09/30/18 13:15 Blood Pressure 97/63 L 09/30/18 11:47 Pulse Oximetry 98 09/30/18 13:15 Critical Care Time Critical Care Time: Yes Total Critical Care Time: 30 Attestation: Aggregate critical care time was 30 minutes. Time to perform other separately billable procedures was not included in the critical care time. My time did not include minutes spent treating any other patients simultaneously or on activities that did not directly contribute to the patient's treatment. The services I provided to this patient were to treat and/or prevent clinically significant deterioration I provided critical care services requiring my management, as noted below: Chart data review, documentation time, medication orders and management, vital sign assessments/reviewing monitor data, ordering and reviewing lab tests, ordering and interpreting/reviewing x-rays and diagnostic studies, care of the patient and discussion of the patient with the admitting physicians. Medical Decision Making MDM Narrative Medical decision making narrative: Discussed case with neurologist Dr. Barragan who recommended admission for further stroke evaluation, does not meet criteria for TPA due to prolonged PERIOD OF SYMPTOMS And findings on CT Medical Screen Exam Complete: Yes Emergency Medical Condition: Yes Imaging Data Radiologist's impression: Head CT 09/30/18 12:42 CONCLUSION: 1. Left occipital lobe hypodensity most characteristic of a nonhemorrhagic acute infarct. 2. No other significant abnormality. . Discharge Plan Discharge Disposition Patient Disposition: 30 Still Patient Discharge Condition Condition: Stable Discharge Details Diagnosis: CVA (cerebral vascular accident) Physicians Team ED Provider: Ace Rahman Primary Care Provider: Nirav Wakefield Rxs /Orders / Referrals /Forms Prescriptions: No Action clonidine HCl 0.1 mg Tablet 0.1 mg PO Q8HR RF: 0 labetalol 200 mg Tablet 200 mg PO BID RF: 0 enalapril maleate 5 mg Tablet 5 mg PO DAILY RF: 0 hydrochlorothiazide 50 mg Tablet 50 mg PO DAILY RF: 0 tramadol 50 mg Tablet 50 mg PO BID PRN (Reason: Acute Pain) RF: 0 leflunomide 20 mg Tablet 20 mg PO DAILY RF: 0 hydroxychloroquine 200 mg Tablet 200 mg PO Q OTHER DAY RF: 0 Discharge Interventions Interventions: Vital Signs Last Done: 09/30/18 12:21 Status ED Status: With Doctor
[2018-09-30] MEDS ORDERED: HYDROmorphone PF Inj 1 MG/ML Ampul IV.SIG ONE (13:00)
[2018-09-30] MEDS ORDERED: Morphine Sulfate Inj 8 MG/ML Vial IV.PUSH ONE (14:25)
--- NOTE | 2018-09-30 14:26 | CT ---
EXAM DATE: 09/30/2018 2:04 PM EST AGE/SEX: 73 years / Male INDICATIONS: Headache, Right eye visual changes CLINICAL DATA: This is the patient's initial encounter. Patient reports that signs and symptoms have been present for 1 day and indicates a pain score of 10/10. MEDICAL/SURGICAL HISTORY: . Aortic Aneurysm, Polymyalgia Rheumatic, Scoliosis, Spinal Stenosis Non e. RADIATION DOSE: 40.54 CTDI (mGy) COMPARISON: No prior exams available for comparison. TECHNIQUE: CT of the head without contrast. Using automated exposure control and adjustment of the mA and/or kV according to patient size, radiation dose was kept as low as reasonably achievable to ob tain optimal diagnostic quality images. DICOM format image data is available electronically for revi ew and comparison. FINDINGS: Cerebrum: Hypodensity has developed in the left occipital lobe. There is loss of link-white differen tiation and effacement of the overlying sulci. There are no findings characteristic of acute hemorrha ge. The cerebral hemispheres otherwise appear normal. Posterior Fossa: The cerebellum and brainstem are intact. The 4th ventricle is midline. The cerebe llopontine angle is unremarkable. Extracranial: The visualized portion of the orbits is intact. Skull: The calvaria is intact. No evidence of skull fracture. CONCLUSION: 1. Left occipital lobe hypodensity most characteristic of a nonhemorrhagic acute infarct. 2. No other significant abnormality. . Electronically signed by: Humberto Moreno MD 09/30/2018 2:24 PM EST
[2018-09-30] MEDS ORDERED: Acetaminophen 325 MG Tablet PO PRN (15:14)
--- NOTE | 2018-09-30 15:27 | XR ---
EXAM DATE: 09/30/2018 3:02 PM EST AGE/SEX: 73 years / Male INDICATIONS: Chest pain CLINICAL DATA: This is the patient's initial encounter. Patient reports that signs and symptoms have been present for 1 day and indicates a pain score of 0/10. MEDICAL/SURGICAL HISTORY: . Aortic Aneurysm, Polymyalgia Rheumatic, Scoliosis, Spinal Stenosis None. COMPARISON: No prior exams available for comparison. FINDINGS: A single AP view of the chest demonstrates the lungs to be symmetrically aerated without evidence of mass, infiltrate or effusion. The cardiomediastinal contours are unremarkable. Osseous structures a re intact. CONCLUSION: No evidence of acute cardiopulmonary process. Electronically signed by: Humberto Moreno MD 09/30/2018 3:25 PM EST
[2018-09-30 15:38] LABS: Baso # (Auto) 0.1 th/mm3 (0.0-0.2); Baso % (Auto) 0.7 % (0.0-2.0); Eos % (Auto) 0.3 % (0.0-4.0); Hematocrit 41.3 % (39.0-51.0); Lymph # (Auto) 0.8 th/mm3 (1.0-4.8); Lymph % (Auto) 5.1 % (9.0-44.0); Mean Corpuscular HGB Conc 33.8 % (32.0-36.0); Mean Corpuscular Hemoglobin 33.8 pg (27.0-34.0); Mean Platelet Volume 9.6 fL (7.0-11.0); Mono # (Auto) 1.2 th/mm3 (0.0-0.9); Mono % (Auto) 7.3 % (0.0-8.0); Neut % (Auto) 86.6 % (16.0-70.0); Platelet Count 236 th/mm3 (150-450); Red Blood Count 4.13 mil/mm3 (4.50-5.90); White Blood Count 16.2 th/mm3 (4.0-11.0)
[2018-09-30 15:55] LABS: Amphetamine Screen,Urine Neg (Neg); Barbiturate Screen,Urine Neg (Neg); Cannabinoid Screen,Urine Neg (Neg); Cocaine Screen,Urine Neg (Neg)
[2018-09-30 16:06] LABS: Lymphocytes 4 % (9-44); Monocytes 5 % (0-8); Platelet Estimate Normal (Normal); Platelet Morphology Normal (Normal)
[2018-09-30 16:19] LABS: Opiate Screen,Urine Neg (Neg)
[2018-09-30 16:20] LABS: Alanine Aminotransferase 35 U/L (12-78); Albumin 2.9 g/dL (3.4-5.0); Alkaline Phosphatase 73 U/L (45-117); Anion Gap 9 meq/L (5-15); Aspartate Aminotransferase 28 U/L (15-37); Blood Urea Nitrogen 23 mg/dL (7-18); Calcium 8.6 mg/dL (8.5-10.1); Carbon Dioxide 23.7 meq/L (21.0-32.0); Chloride 103 meq/L (98-107); Creatine Kinase 73 U/L (39-308); Glomerular Filtration Rate 61 mL/min (>89); Glucose,Random 99 mg/dL (74-106); Potassium 4.4 meq/L (3.5-5.1); Sodium 136 meq/L (136-145); Total Protein 6.4 g/dL (6.4-8.2)
[2018-09-30 16:21] LABS: Activated Partial Thrombo Time 30.5 sec (23.4-31.7); INR 0.9 Ratio; Prothrombin Time 9.6 sec (9.8-11.6)
[2018-09-30] MEDS ORDERED: Temazepam 15 MG Capsule PO PRN (17:42)
--- NOTE | 2018-09-30 17:52 | P.HP ---
History of Present Illness Primary Care Physician: Nirav Wakefield MD Chief Complaint: Headaches History of Present Illness: 73-year-old man with a past medical history of rheumatoid arthritis, PMR, chronic back pain presented to the ED for evaluation of worsening headache times 2-day duration associated with peripheral visual loss mostly in the right eye, which occurred today. Patient states, this morning when he woke up to get into these headaches he was having trouble focusing with his eyes, he noted peripheral vision loss in his right eye. Patient also states he was having a hard time reading however denied any slurred speech or weakness. Has no chest pain or shortness of breath. Has no other neurologic deficit. Head CT reveals Left occipital lobe hypodensity most characteristic of a nonhemorrhagic acute infarct Review of Systems All other systems reviewed negative except as stated in [facility] - History History Provided By: Patient - Medical History Medical History: Medical History (Last Reviewed 09/30/18 @ 14:48 by Ace Rahman) H/O aortic aneurysm H/O polymyalgia rheumatica H/O scoliosis H/O spinal stenosis - Surgical History Surgical History: Surgical History (Last Reviewed 09/30/18 @ 14:48 by Ace Rahman) History of back surgery - Family History Family History: Family History (Last Updated 09/30/18 @ 17:48 by Sb Magallon MD) Other Heart disease - Tobacco History Second Hand Smoke Exposure: No Tobacco Use In Past 30 Days: No Smoking Status: Former smoker Tobacco Type: Cigarettes - Alcohol History How Often Do You Have a Drink Containing Alcohol: Never - Substance Use History Substance History: No History of Abuse - Travel History Recent Travel in the [place] Within the Last 8 Weeks: No Recent Travel Out of the Country Within the Last 8 Weeks: No - Immunization History Tetanus Immunization: <5 Years Tetanus Immunization Year if Known: 2014 Medications and Allergies Active Medications: Active Medications Acetaminophen (Tylenol) 650 mg PO Q4H PRN PRN Reason: Temp > 100.4 Al Hydroxide/Mg Hydroxide (Milk Of Magnjm Liq) 30 ml PO Q12H PRN PRN Reason: Mild Constipation Labetalol HCl (Trandate) 200 mg PO BID [place] Non-Formulary Medication (Leflunomide [Leflunomide]) 20 mg PO DAILY [place] Ondansetron HCl (Zofran Inj) 4 mg IV.PUSH Q6H PRN PRN Reason: NAUSEA OR VOMITING Sodium Chloride (Ns Flush) 2 ml IV.FLUSH UNSCH PRN PRN Reason: FLUSH AFTER USING IV ACCESS Last Admin: 09/30/18 15:07 Dose: 2 ml Tramadol HCl (Ultram) 50 mg PO BID PRN PRN Reason: Acute Pain Allergies Allergy/AdvReac Type Severity Reaction Status Date / Time codeine AdvReac Nausea Verified 09/30/18 12:18 MUSHROOM Allergy Unknown Anaphylaxis Uncoded 09/30/18 12:18 Home Medications Medication Instructions Recorded Confirmed Type clonidine HCl 0.1 mg PO Q8HR 05/31/18 09/30/18 History enalapril maleate 5 mg PO DAILY 05/31/18 09/30/18 History hydrochlorothiazide 50 mg PO DAILY 05/31/18 09/30/18 History labetalol 200 mg PO BID 05/31/18 09/30/18 History tramadol 50 mg PO BID PRN 05/31/18 09/30/18 History hydroxychloroquine 200 mg PO Q OTHER DAY 09/30/18 09/30/18 History leflunomide 20 mg PO DAILY 09/30/18 09/30/18 History Exam Vital signs: Vital Signs 09/30/18 11:47 09/30/18 12:21 09/30/18 13:15 Temperature 97.1 F L Pulse Rate 108 H 89 82 Respiratory Rate 17 16 15 Blood Pressure 97/63 L Pulse Oximetry 97 98 98 Intake & Output 09/29/18 09/30/18 09/30/18 19:59 06:59 18:59 Weight 74.843 kg Narrative: GENERAL: NAD SKIN: Warm and dry. HEAD: Atraumatic. Normocephalic. EYES: Pupils equal and round. No scleral icterus. No injection or drainage. ENT: No nasal bleeding or discharge. Mucous membranes pink and moist. NECK: Trachea midline. No JVD. CARDIOVASCULAR: Regular rate and rhythm. RESPIRATORY: No accessory muscle use. Clear to auscultation. Breath sounds equal bilaterally. GASTROINTESTINAL: Abdomen soft, non-tender, nondistended. Hepatic and splenic margins not palpable. MUSCULOSKELETAL: Extremities without clubbing, cyanosis, or edema. No obvious deformities. NEUROLOGICAL: Awake and alert. No obvious cranial nerve deficits. Motor grossly within normal limits. Five out of 5 muscle strength in the arms and legs. Normal speech. PSYCHIATRIC: Appropriate mood and affect; insight and judgment normal. Results - Labs CBC & Chem 7: 09/30/18 15:00 09/30/18 15:00 Labs: Laboratory Results - last 24 hr 09/30/18 09/30/18 09/30/18 15:00 15:00 15:00 WBC 16.2 H RBC 4.13 L Hgb 14.0 Hct 41.3 MCV 100.0 MCH 33.8 MCHC 33.8 RDW 16.0 Plt Count 236 MPV 9.6 Prelim Diff (Auto) Slide review pending Neut % (Auto) 86.6 H Lymph % (Auto) 5.1 L [place] % (Auto) 7.3 Eos % (Auto) 0.3 Baso % (Auto) 0.7 Neut # (Auto) 14.0 H Lymph # (Auto) 0.8 L [place] # (Auto) 1.2 H Eos # (Auto) 0.0 Baso # (Auto) 0.1 WBC Differential Manual diff final Seg Neuts % (Manual) 78 H Band Neuts % (Manual) 13 H Lymphocytes % (Manual) 4 L Monocytes % (Manual) 5 Abs Neuts (Manual) 14.7 H Differential Comment . Platelet Estimate Normal Platelet Morphology Normal PT 9.6 L INR 0.9 APTT 30.5 Sodium 136 Potassium 4.4 Chloride 103 Carbon Dioxide 23.7 Anion Gap 9 BUN 23 H Creatinine 1.17 Estimated GFR 61 L Random Glucose 99 Calcium 8.6 Total Bilirubin 0.3 AST 28 ALT 35 Alkaline Phosphatase 73 Total Creatine Kinase 73 Troponin I Less than 0.02 L B-Natriuretic Peptide Total Protein 6.4 Albumin 2.9 L Urine Opiates Screen Ur Barbiturates Screen Ur Amphetamines Screen U Benzodiazepines Scrn Urine Cocaine Screen U Cannabinoids Screen 09/30/18 09/30/18 15:00 Unknown WBC RBC Hgb Hct MCV MCH MCHC RDW Plt Count MPV Prelim Diff (Auto) Neut % (Auto) Lymph % (Auto) [place] % (Auto) Eos % (Auto) Baso % (Auto) Neut # (Auto) Lymph # (Auto) [place] # (Auto) Eos # (Auto) Baso # (Auto) WBC Differential Seg Neuts % (Manual) Band Neuts % (Manual) Lymphocytes % (Manual) Monocytes % (Manual) Abs Neuts (Manual) Differential Comment Platelet Estimate Platelet Morphology PT INR APTT Sodium Potassium Chloride Carbon Dioxide Anion Gap BUN Creatinine Estimated GFR Random Glucose Calcium Total Bilirubin AST ALT Alkaline Phosphatase Total Creatine Kinase Troponin I B-Natriuretic Peptide 46 Total Protein Albumin Urine Opiates Screen Neg Ur Barbiturates Screen Neg Ur Amphetamines Screen Neg U Benzodiazepines Scrn Neg Urine Cocaine Screen Neg U Cannabinoids Screen Neg - Imaging Impressions Head CT 09/30/18 12:42 CONCLUSION: 1. Left occipital lobe hypodensity most characteristic of a nonhemorrhagic acute infarct. 2. No other significant abnormality. . Chest X-Ray 09/30/18 14:50 CONCLUSION: No evidence of acute cardiopulmonary process. Caprini VTE Risk Assessment Caprini VTE Risk Assessment: Moderate/High Risk (score >= 2) Caprini Risk Assessment Model: Point Value = 1 Point Value = 2 Point Value = 3 Point Value = 5 Age 41-60 Minor surgery BMI > 25 kg/m2 Swollen legs Varicose veins or History of unexplained or recurrent spontaneous Oral contraceptives or hormone replacement Sepsis (< 1 month) Serious lung disease, including pneumonia (< 1 month) Abnormal pulmonary function Acute myocardial infarction Congestive heart failure (< 1 month) History of inflammatory bowel disease Medical patient at bed rest Age 61-74 Arthroscopic surgery Major open surgery (> 45 min) Laparoscopic surgery (> 45 min) Malignancy Confined to bed (> 72 hours) Immobilizing plaster cast Central venous access Age >= 75 History of VTE Family history of VTE Factor V Leiden Prothrombin [id number] Lupus anticoagulant Anticardiolipin antibodies Elevated serum homocysteine Heparin-induced thrombocytopenia Other congenital or acquired thrombophilia Stroke (< 1 month) Elective arthroplasty Hip, pelvis, or leg fracture Acute spinal cord injury (< 1 month) Prophylaxis Regimen: Total Risk Factor Score Risk Level Prophylaxis Regimen 0-1 Low Early ambulation 2 Moderate Order ONE of the following: *Sequential Compression Device (SCD) *Heparin 5000 units SQ BID 3-4 Higher Order ONE of the following medications: *Heparin 5000 units SQ TID *Enoxaparin/Lovenox 40 mg SQ daily (WT < 150 kg, CrCl > 30 mL/min) *Enoxaparin/Lovenox 30 mg SQ daily (WT < 150 kg, CrCl > 10-29 mL/min) *Enoxaparin/Lovenox 30 mg SQ BID (WT < 150 kg, CrCl > 30 mL/min) AND/OR *Sequential Compression Device (SCD) 5 or more Highest Order ONE of the following medications: *Heparin 5000 units SQ TID (Preferred with Epidurals) *Enoxaparin/Lovenox 40 mg SQ daily (WT < 150 kg, CrCl > 30 mL/min) *Enoxaparin/Lovenox 30 mg SQ daily (WT < 150 kg, CrCl > 10-29 mL/min) *Enoxaparin/Lovenox 30 mg SQ BID (WT < 150 kg, CrCl > 30 mL/min) AND *Sequential Compression Device (SCD) Assessment and Plan - Plan 73-year-old man with Ischemic CVA Treatment per ischemic stroke protocol However patient with symptoms outside of window was on for TPA treatment Head CT noted and reviewed with finding of Left occipital lobe hypodensity most characteristic of a nonhemorrhagic acute infarct Check brain MRI/MRA and carotid ultrasound bilaterally Cardiac monitoring, lipid profile Start aspirin, Lipitor Allow for permissive hypertension PT consult to treat and eval Hypertension Continue permissive hypertension Chronic back pain Tramadol as needed DVT prophylaxis: Bilateral SCDs
--- NOTE | 2018-09-30 20:10 | MR ---
EXAM DATE: 09/30/2018 7:55 PM EST AGE/SEX: 73 years / Male INDICATIONS: CVA. CLINICAL DATA: This is the patient's initial encounter. Patient reports that signs and symptoms have been present for 1 day and indicates a pain score of 0/10. MEDICAL/SURGICAL HISTORY: Hypertension. Discectomy, lumbar. COMPARISON: [facility] – [place], CT HEAD W/O CONTRAST, 09/30/2018. . TECHNIQUE: Multiplanar, multisequence examination of the brain was performed without contrast. FINDINGS: Roughly 2.6 x 6.0 cm area of restricted diffusion seen of the left occipital lobe consistent with an acute infarct. No hemorrhage demonstrated. No mass, mass effect or midline shift. No other restricted diffusion demonstrated. Moderate severity cerebral atrophy. CONCLUSION: 2.6 x 6.0 cm region of acute infarction involves the left occipital lobe. No other acute intracranial abnormality demonstrated. Electronically signed by: Tavo Faith MD 09/30/2018 8:09 PM EST
--- NOTE | 2018-09-30 20:14 | MR ---
EXAM DATE: 09/30/2018 8:02 PM EST AGE/SEX: 73 years / Male INDICATIONS: CVA. CLINICAL DATA: This is the patient's initial encounter. Patient reports that signs and symptoms have been present for 1 day and indicates a pain score of 0/10. MEDICAL/SURGICAL HISTORY: Hypertension. . Spinal Stenosis, Ankle sx COMPARISON: [facility] [place], MR HEAD W/O CONTRAST, 09/30/2018. . TECHNIQUE: 3D [id number] MRA was performed. Source images, multiplanar STS MIP, and 3D volum e MIP reconstructions were reviewed. FINDINGS: Decreased caliber and patchy luminal irregularity involves the proximal portions of the left posterio r cerebral artery, for example series 102 image 32. The more distal branches are completely attenuate d. Caliber/filling of other intracranial arteries otherwise within normal limits. CONCLUSION: Distal vessels of the left posterior cerebral artery are thrombosed and superimposed on p artial thrombosis and/or chronic intracranial atherosclerosis more proximally. Electronically signed by: Tavo Faith MD 09/30/2018 8:13 PM EST
[2018-09-30] MEDS: Labetalol 200 MG Tablet PO SCH (20:20)
--- NOTE | 2018-09-30 22:41 | US ---
EXAM DATE: 09/30/2018 10:33 PM EST AGE/SEX: 73 years / Male INDICATIONS: Syncope. CLINICAL DATA: This is the patient's initial encounter. Patient reports that signs and symptoms have been present for 1 day and indicates a pain score of 0/10. MEDICAL/SURGICAL HISTORY: . Aortic aneurysm. Polymyalgia rheumatic. Scoliosis. Spinal stenosis. . Back surgery. COMPARISON: No prior exams available for comparison. VELOCITY PARAMETERS: ICA/CCA Ratio: Right 1.2 , Left 1.3 ICA: Right 86 cm/sec, Left 82 cm/sec CCA: Right 74 cm/sec, Left 66 cm/sec ECA: Right 71 cm/sec, Left 57 cm/sec Vertebral: Right 36 cm/sec antegrade, Left 27 cm/sec antegrade FINDINGS: Right Carotid: Mild arteriosclerotic plaque is visualized of the bulb and proximal internal carotid artery.The waveforms are within normal limits. Left Carotid: Mild arteriosclerotic plaque is visualized of the bulb and proximal internal carotid a rtery. The waveforms are within normal limits. Other: None. CONCLUSION: 1. Right Internal Carotid Artery: Mild bifurcation atherosclerosis without significant narrowing. 2. Left Internal Carotid Artery: Mild bifurcation atherosclerosis without significant narrowing. Electronically signed by: Tavo Faith MD 09/30/2018 10:39 PM EST
[2018-10-01 05:43] LABS: Baso # (Auto) 0.2 th/mm3 (0.0-0.2); Baso % (Auto) 1.3 % (0.0-2.0); Eos # (Auto) 0.1 th/mm3 (0.0-0.4); Eos % (Auto) 0.9 % (0.0-4.0); Hematocrit 41.8 % (39.0-51.0); Hemoglobin 14.2 gm/dL (13.0-17.0); Lymph # (Auto) 1.4 th/mm3 (1.0-4.8); Lymph % (Auto) 10.4 % (9.0-44.0); Mean Corpuscular HGB Conc 33.9 % (32.0-36.0); Mean Corpuscular Hemoglobin 33.2 pg (27.0-34.0); Mean Corpuscular Volume 98.1 fL (80.0-100.0); Mean Platelet Volume 9.6 fL (7.0-11.0); Mono # (Auto) 1.2 th/mm3 (0.0-0.9); Mono % (Auto) 8.9 % (0.0-8.0); Neut # (Auto) 10.7 th/mm3 (1.8-7.7); Neut % (Auto) 78.5 % (16.0-70.0); Platelet Count 240 th/mm3 (150-450); Red Blood Count 4.26 mil/mm3 (4.50-5.90); Red Cell Distribution Width 15.6 % (11.6-17.2); White Blood Count 13.6 th/mm3 (4.0-11.0)
[2018-10-01 06:05] LABS: Albumin 3.3 g/dL (3.4-5.0)
[2018-10-01 06:07] LABS: Chol/HDL Ratio 3.88 Ratio; HDL Cholesterol 44.3 mg/dL (40.0-60.0); Total Protein 6.9 g/dL (6.4-8.2)
[2018-10-01 07:31] LABS: Lymphocytes 14 % (9-44); Metamyelocytes 2 % (0-1); Monocytes 8 % (0-8); Myelocytes 1 % (0-0); Platelet Estimate Normal (Normal); Platelet Morphology Normal (Normal)
[2018-10-01 07:32] LABS: RBC Morphology Normal (Normal)
[2018-10-01] MEDS: Labetalol 200 MG Tablet PO SCH ×2 (08:35→21:31)
[2018-10-01] MEDS ORDERED: LEFLUNOMIDE 20 MG PO SCH (09:00)
[2018-10-01] MEDS ORDERED: Acetaminophen 325 MG Tablet PO ONE (14:05)
--- NOTE | 2018-10-01 16:33 | P.DS ---
Date of admission: 10/01/18 08:57 Primary care physician: Nirav Wakefield MD Brief History from admission: 73-year-old man with a past medical history of rheumatoid arthritis, PMR, chronic back pain presented to the ED for evaluation of worsening headache times 2-day duration associated with peripheral visual loss mostly in the right eye, which occurred today. Patient states, this morning when he woke up to get into these headaches he was having trouble focusing with his eyes, he noted peripheral vision loss in his right eye. Patient also states he was having a hard time reading however denied any slurred speech or weakness. Has no chest pain or shortness of breath. Has no other neurologic deficit. Head CT reveals Left occipital lobe hypodensity most characteristic of a nonhemorrhagic acute infarct DS: Medications - Discharge Medications Prescriptions: aspirin [Adult Low Dose Aspirin] 81 mg PO DAILY #30 tab DS: Summary Hospital Course: Mr. Soto is a 73-year-old male. He is admitted secondary to acute onset of visual change which is related to the left occipital CVA. CVA is confirmed on MRI. By last evening and through the night and through today the patient has resolution of his visual deficit. He is requesting discharge when seen today. Workup is otherwise negative except for left occipital CVA. He had not been on any anticoagulation including no aspirin prior to time of admit. Daily aspirin is recommended as a new treatment. Neurology evaluation pending. If neurology clears patient for discharge today the patient's medically stable and cleared for discharge home today. - Time Spent with Patient Total time spent providing and/or coordinating discharge services: Less than 30 minutes - Quality: VTE Deep Vein Thrombosis/Pulmonary Embolism Present on Admission: No Exam Vital signs: Vital Signs 09/30/18 19:24 10/01/18 02:50 10/01/18 06:33 Temperature 97.7 F 98.2 F 97.7 F Pulse Rate 90 96 H 88 Respiratory Rate 16 16 20 Blood Pressure 121/78 116/63 115/73 Pulse Oximetry 97 97 98 10/01/18 08:00 10/01/18 12:00 Temperature 97.6 F 97.6 F Pulse Rate 106 H 71 Respiratory Rate 20 18 Blood Pressure 136/83 123/72 Pulse Oximetry 97 94 L Intake & Output 09/30/18 10/01/18 10/01/18 18:59 06:59 18:59 Output Total 200 / 200 Balance -200 / -200 Weight 74.843 kg Output: Urine 200 / 200 Results Procedures completed during hospitalization: None Labs on day of discharge: Labs from last 24 hours 10/01/18 10/01/18 04:40 04:40 WBC 13.6 H RBC 4.26 L Hgb 14.2 Hct 41.8 MCV 98.1 MCH 33.2 MCHC 33.9 RDW 15.6 Plt Count 240 MPV 9.6 Prelim Diff (Auto) Slide review pending Neut % (Auto) 78.5 H Lymph % (Auto) 10.4 Sheridan % (Auto) 8.9 H Eos % (Auto) 0.9 Baso % (Auto) 1.3 Neut # (Auto) 10.7 H Lymph # (Auto) 1.4 Sheridan # (Auto) 1.2 H Eos # (Auto) 0.1 Baso # (Auto) 0.2 WBC Differential Manual diff final Seg Neuts % (Manual) 65 Band Neuts % (Manual) 8 H Lymphocytes % (Manual) 14 Monocytes % (Manual) 8 Basophils % (Manual) 2 Metamyelocytes % (Man) 2 H Myelocytes % (Man) 1 H Abs Neuts (Manual) 10.3 H Differential Comment . Platelet Estimate Normal Platelet Morphology Normal RBC Morphology Normal Total Bilirubin 0.5 Direct Bilirubin 0.1 Indirect Bilirubin 0.4 AST 21 ALT 31 Alkaline Phosphatase 74 Total Protein 6.9 Albumin 3.3 L Triglycerides 188 H Cholesterol 172 LDL Cholesterol, Calc 90 HDL Cholesterol 44.3 Cholesterol/HDL Ratio 3.88 - Impressions ITS Impressions Carotid Doppler Study 09/30/18 00:00 CONCLUSION: 1. Right Internal Carotid Artery: Mild bifurcation atherosclerosis without significant narrowing. 2. Left Internal Carotid Artery: Mild bifurcation atherosclerosis without significant narrowing. Head CT 09/30/18 12:42 CONCLUSION: 1. Left occipital lobe hypodensity most characteristic of a nonhemorrhagic acute infarct. 2. No other significant abnormality. . Chest X-Ray 09/30/18 14:50 CONCLUSION: No evidence of acute cardiopulmonary process. Head MRI 09/30/18 17:42 CONCLUSION: 2.6 x 6.0 cm region of acute infarction involves the left occipital lobe. No other acute intracranial abnormality demonstrated. Head MRA 09/30/18 17:42 CONCLUSION: Distal vessels of the left posterior cerebral artery are thrombosed and superimposed on partial thrombosis and/or chronic intracranial atherosclerosis more proximally. Discharge Plan - Discharge Disposition Patient Disposition: /Home Health Service - Discharge Condition Condition: Stable - Discharge Order Discharge Orders: Discharge Order (Routine); Ordered 10/01/18 Ordered By: Braeden Pearson - Discharge Details Anticipated Discharge Date: 10/01/18 Discharge Comment: After seen and cleared by Neurology - Physicians Team Primary Care Provider: Nirav Wakefield Attending Provider: Braeden Pearson Other Providers: Piotr Bowles MD, PhD
--- NOTE | 2018-10-01 16:57 | MB ---
cc: Piotr Bowles MD, PhD DATE: 10/01/2018 REASON FOR CONSULTATION: Stroke. HISTORY OF PRESENT ILLNESS: Mr. Montilla is a 73-year-old man who woke up yesterday; states he had trouble seeing off to the right side, did not feel completely right, had a mild headache. He came to the ER. His headache has since resolved. He had no slurred speech, no focal weakness or numbness. PAST MEDICAL HISTORY: History of abdominal aortic aneurysm, rheumatoid arthritis, PMR, chronic back pain, spinal stenosis. MEDICATIONS AT HOME: 1. Tylenol. 2. Hydroxyzine. 3. Labetalol. 4. Tramadol. 5. He does not take aspirin at home or any other antiplatelets or anticoagulants. NEUROLOGICAL EXAMINATION: VITAL SIGNS: Blood pressure 123/72, pulse 93, respiratory rate is 18, temperature 97 degrees. NEUROLOGIC: Higher cortical functions are normal. Cranial nerves: He has got a right homonymous hemianopsia. Motor exam is 5/5 in all groups. There is no drift. Fine motor skills within normal limits. Reflexes are symmetric. Cerebellar testing is normal with no dysmetria. IMAGING/DIAGNOSTIC DATA: 1. CT scan of the brain, left occipital lobe hypodensity consistent with a nonhemorrhagic stroke. 2. Carotid ultrasound negative for any significant stenosis. 3. MRI of the brain is consistent with acute stroke in the left occipital lobe. No other abnormalities identified. 4. Carotid ultrasound negative for any significant stenosis. 5. EKG: Sinus rhythm. 6. MRA of the brain: Thrombosis of the left posterior cerebral artery. LABORATORY DATA: The sodium is 136, potassium 4.4, chloride 103, CO2 23.7. The BUN is 23, creatinine 1.17, GFR 61, glucose 99, calcium 8.6, AST 28, ALT 35, triglycerides 188, cholesterol 172, LDL 90, HDL 44. PT 9.6, INR 0.9, APTT 30.5. Tox screen negative. IMPRESSION: Left occipital lobe stroke. RECOMMENDATIONS: Aspirin 325 mg daily. Continue statin due to the elevated LDL, we will obtain an echocardiogram as well. I would like to get a sedimentation rate as well; rule out temporal arteritis given his headache, although this may be elevated because of the rheumatoid arthritis. Piotr Bowles MD, PhD SONY/fransisco , 04:32 PM , 04:38 PM
[2018-10-01] MEDS: Aspirin 325 MG Tablet PO SCH (18:06)
--- NOTE | 2018-10-01 21:35 | ECG ---
Date Performed: 09/30/2018 Time Performed: 15:30:10 PTAGE: 73 years EKG: Sinus rhythm WITH SINUS ARRHYTHMIA NORMAL ECG PREVIOUS TRACING : 02/20/2003 16.53 Since the previous tracing, no significant change noted DOCTOR: Alfa Sandoval Interpretating Date/Time 10/01/2018 21:34:58
--- NOTE | 2018-10-02 07:04 | ECHRPT ---
Indication: CVA/TIA CONCLUSIONS Normal left ventricular size. Mild concentric left ventricular hypertrophy. The left ventricular systolic function is normal with an estimated ejection fraction in the range of 55-60%. Trace mitral valve regurgitation. Trace aortic valve regurgitation. There is trace tricuspid valve regurgitation. The estimated pulmonary arterial pressure is 48 mmHg. BP: / HR: Rhythm: MEASUREMENTS (Male / Female) Normal Values Technical Quality:Technically difficult study 2D ECHO LV Diastolic Diameter PLAX 3.9 cm 4.2 - 5.9 / 3.9 - 5.3 cm LV Systolic Diameter PLAX 2.4 cm IVS Diastolic Thickness 1.3 cm 0.6 - 1.0 / 0.6 - 0.9 cm LVPW Diastolic Thickness 1.3 cm 0.6 - 1.0 / 0.6 - 0.9 cm LV Relative Wall Thickness 0.7 RV Internal Dim ED PLAX 2.3 cm LVOT Diameter 1.9 cm Aortic Root Diameter 3.6 cm LA Systolic Diameter LX 3.3 cm 3.0 - 4.0 / 2.7 - 3.8 cm DOPPLER AV Peak Velocity 115.0 cm/s AV Peak Gradient 5.3 mmHg LVOT Peak Velocity 88.8 cm/s LVOT Peak Gradient 3.2 mmHg AV Area Cont Eq pk 2.2 cm Mitral E Point Velocity 60.2 cm/s Mitral A Point Velocity 84.4 cm/s Mitral E to A Ratio 0.7 LV E' Lateral Velocity 8.0 cm/s Mitral E to LV E' Lateral Ratio 7.5 LV E' Septal Velocity 7.3 cm/s Mitral E to LV E' Septal Ratio 8.2 TR Peak Velocity 306.0 cm/s TR Peak Gradient 37.5 mmHg Right Atrial Pressure 10.0 mmHg Pulmonary Artery Systolic Pressu 47.5 mmHg Right Ventricular Systolic Press 47.5 mmHg PV Peak Velocity 100.0 cm/s PV Peak Gradient 4.0 mmHg FINDINGS LEFT VENTRICLE Normal left ventricular size. Mild concentric left ventricular hypertrophy. The left ventricular systolic function is normal with an estimated ejection fraction in the range of 55-60%. RIGHT VENTRICLE Normal right ventricular size and systolic function. LEFT ATRIUM The left atrial size is normal. RIGHT ATRIUM The right atrial size is normal. ATRIAL SEPTUM Normal atrial septal thickness without atrial level shunting by limited color doppler interrogation. AORTA The aortic root and proximal ascending aorta are normal in size on limited imaging. MITRAL VALVE Trace mitral valve regurgitation. AORTIC VALVE Trace aortic valve regurgitation. TRICUSPID VALVE There is trace tricuspid valve regurgitation. The estimated pulmonary arterial pressure is 48 mmHg. PULMONARY VALVE No pulmonary valve regurgitation or stenosis. VESSELS The inferior vena cava is normal in size. PERICARDIUM No pericardial effusion. Jose Choi MD, FACC, [facility] [place] (Electronically Signed) Final Date:02 October 2018 07:03
[2018-10-02 07:57] LABS: Baso # (Auto) 0.1 th/mm3 (0.0-0.2); Baso % (Auto) 1.1 % (0.0-2.0); Eos # (Auto) 0.1 th/mm3 (0.0-0.4); Eos % (Auto) 0.7 % (0.0-4.0); Hematocrit 44.5 % (39.0-51.0); Hemoglobin 15.1 gm/dL (13.0-17.0); Lymph # (Auto) 1.1 th/mm3 (1.0-4.8); Mean Corpuscular Hemoglobin 33.6 pg (27.0-34.0); Mean Corpuscular Volume 98.9 fL (80.0-100.0); Mean Platelet Volume 9.7 fL (7.0-11.0); Mono # (Auto) 1.3 th/mm3 (0.0-0.9); Mono % (Auto) 10.2 % (0.0-8.0); Neut # (Auto) 9.8 th/mm3 (1.8-7.7); Platelet Count 226 th/mm3 (150-450); Red Cell Distribution Width 15.9 % (11.6-17.2); White Blood Count 12.3 th/mm3 (4.0-11.0)
[2018-10-02] MEDS: Aspirin 325 MG Tablet PO SCH (08:13)
[2018-10-02] MEDS: Labetalol 200 MG Tablet PO SCH (08:13)
[2018-10-02 08:22] LABS: Alanine Aminotransferase 29 U/L (12-78); Albumin 3.1 g/dL (3.4-5.0); Alkaline Phosphatase 77 U/L (45-117); Anion Gap 11 meq/L (5-15); Aspartate Aminotransferase 47 U/L (15-37); Blood Urea Nitrogen 30 mg/dL (7-18); Calcium 9.6 mg/dL (8.5-10.1); Carbon Dioxide 24.3 meq/L (21.0-32.0); Chloride 96 meq/L (98-107); Glomerular Filtration Rate 48 mL/min (>89); Glucose,Random 77 mg/dL (74-106); Sodium 131 meq/L (136-145); Total Protein 7.3 g/dL (6.4-8.2)
[2018-10-02 08:26] LABS: Potassium 4.6 meq/L (3.5-5.1)
[2018-10-02 08:48] LABS: Lymphocytes 10 % (9-44); Metamyelocytes 1 % (0-1); Monocytes 7 % (0-8); Myelocytes 4 % (0-0); Platelet Estimate Normal (Normal); Platelet Morphology Normal (Normal); RBC Morphology Normal (Normal)
== END 2018-10-02 10:30 | disposition home or self-care (01) ==
LOC: NEPC 11:43 → INTOOBSV 14:58 → NEDA 14:58 → N05 16:30
PROVIDERS: ADMIT Hospitalist; ATTEND Hospitalist